=== PATIENT | female | born 1935 | race Caucasian/White ===

== ENCOUNTER → 2019-05-10 11:46 | Outpatient (BNVA) | payer MEDICARE, OTHER, SELFPAY | PROVIDERS: Family Provider Nurse Practitioner; PCP Nurse Practitioner; Visit Provider Nurse Practitioner | DX: I10 Essential (primary) hypertension (principal); E03.9 Hypothyroidism, unspecified; B02.22 Postherpetic trigeminal neuralgia; K21.0 Gastro-esophageal reflux disease with esophagitis | CPT/HCPCS: 80053; 80061; 84443 ==

== ENCOUNTER → 2019-07-19 12:10 | Outpatient (BNVA) | payer MEDICARE, OTHER, SELFPAY | PROVIDERS: Family Provider Nurse Practitioner; PCP Nurse Practitioner; Visit Provider Nurse Practitioner | DX: I10 Essential (primary) hypertension (principal); F41.9 Anxiety disorder, unspecified; E87.6 Hypokalemia | CPT/HCPCS: 80048 ==

== ENCOUNTER → 2019-08-25 11:00 | Outpatient (BNVA) | payer MEDICARE, OTHER, SELFPAY | PROVIDERS: Family Provider Nurse Practitioner; PCP Nurse Practitioner; Visit Provider Nurse Practitioner | DX: I10 Essential (primary) hypertension (principal); E03.9 Hypothyroidism, unspecified; E07.9 Disorder of thyroid, unspecified | CPT/HCPCS: 80053; 84443 ==

== ENCOUNTER → 2019-09-15 11:51 | Outpatient (BNVA) | payer MEDICARE, OTHER, SELFPAY | PROVIDERS: Family Provider Nurse Practitioner; PCP Nurse Practitioner; Visit Provider Nurse Practitioner | DX: I10 Essential (primary) hypertension (principal); F41.9 Anxiety disorder, unspecified; E03.9 Hypothyroidism, unspecified | CPT/HCPCS: 80053; 80061 ==

== ENCOUNTER → 2019-10-19 15:51 | Outpatient (BNVA) | payer MEDICARE, OTHER, SELFPAY | PROVIDERS: Family Provider Nurse Practitioner; PCP Nurse Practitioner; Visit Provider Nurse Practitioner | DX: R10.9 Unspecified abdominal pain (principal) | CPT/HCPCS: 74018; 80048 ==

== ENCOUNTER → 2019-10-23 10:37 | Outpatient (BNVA) | payer MEDICARE, OTHER, SELFPAY | PROVIDERS: Family Provider Nurse Practitioner; PCP Nurse Practitioner; Visit Provider Nurse Practitioner | DX: I10 Essential (primary) hypertension (principal); R10.9 Unspecified abdominal pain | CPT/HCPCS: 81000 ==

== ENCOUNTER → 2019-11-16 12:08 | Outpatient (BNVA) | payer MEDICARE, OTHER, SELFPAY | PROVIDERS: Family Provider Nurse Practitioner; PCP Nurse Practitioner; Visit Provider Nurse Practitioner | DX: I10 Essential (primary) hypertension (principal); R10.9 Unspecified abdominal pain; E87.6 Hypokalemia; K21.0 Gastro-esophageal reflux disease with esophagitis | CPT/HCPCS: 80048; 81000 ==

== ENCOUNTER → 2019-11-24 10:14 | Outpatient (BNVA) | payer MEDICARE, OTHER, SELFPAY | PROVIDERS: Family Provider Nurse Practitioner; PCP Nurse Practitioner; Visit Provider Nurse Practitioner | DX: E87.6 Hypokalemia (principal) | CPT/HCPCS: 80048 ==

== ENCOUNTER → 2020-02-21 11:29 | Outpatient (BNVA) | payer MEDICARE, OTHER, SELFPAY | PROVIDERS: Family Provider Nurse Practitioner; PCP Nurse Practitioner; Visit Provider Nurse Practitioner | DX: E03.9 Hypothyroidism, unspecified (principal); I10 Essential (primary) hypertension; E87.6 Hypokalemia; B02.22 Postherpetic trigeminal neuralgia; K21.00 Gastro-esophageal reflux disease with esophagitis, without bleeding | CPT/HCPCS: 80053; 84443 ==

== ENCOUNTER → 2020-04-18 11:37 | Outpatient (BNVA) | payer MEDICARE, OTHER, SELFPAY | PROVIDERS: Family Provider Nurse Practitioner; PCP Nurse Practitioner; Visit Provider Nurse Practitioner | DX: I10 Essential (primary) hypertension (principal); B02.22 Postherpetic trigeminal neuralgia; M19.049 Primary osteoarthritis, unspecified hand; E03.9 Hypothyroidism, unspecified | CPT/HCPCS: 80048 ==

== ENCOUNTER → 2020-06-06 11:47 | Outpatient (BNVA) | payer MEDICARE, OTHER, SELFPAY | PROVIDERS: Family Provider Nurse Practitioner; PCP Nurse Practitioner; Visit Provider Nurse Practitioner | DX: E03.9 Hypothyroidism, unspecified (principal); E55.9 Vitamin D deficiency, unspecified; I10 Essential (primary) hypertension | CPT/HCPCS: 80053; 82306; 84443; 85025 ==

== ENCOUNTER → 2020-08-08 11:42 | Outpatient (BNVA) | payer MEDICARE, OTHER, SELFPAY | PROVIDERS: Family Provider Nurse Practitioner; PCP Nurse Practitioner; Visit Provider Nurse Practitioner | DX: E03.9 Hypothyroidism, unspecified (principal); I10 Essential (primary) hypertension; E55.9 Vitamin D deficiency, unspecified; F41.9 Anxiety disorder, unspecified; B02.22 Postherpetic trigeminal neuralgia; R41.3 Other amnesia | CPT/HCPCS: 80053; 82306; 84443 ==

== ENCOUNTER → 2020-08-29 11:10 | Outpatient (BNVA) | payer MEDICARE, OTHER, SELFPAY | PROVIDERS: Family Provider Nurse Practitioner; PCP Nurse Practitioner; Visit Provider Nurse Practitioner | DX: I10 Essential (primary) hypertension (principal) | CPT/HCPCS: 80048; 85025 ==

== ENCOUNTER → 2020-10-03 11:36 | Outpatient (BNVA) | payer MEDICARE, OTHER, SELFPAY | PROVIDERS: Family Provider Nurse Practitioner; PCP Nurse Practitioner; Visit Provider Nurse Practitioner | DX: E55.9 Vitamin D deficiency, unspecified (principal); E03.9 Hypothyroidism, unspecified; F41.9 Anxiety disorder, unspecified | CPT/HCPCS: 82306; 84443 ==

== ENCOUNTER → 2020-10-09 15:57 | Outpatient (BNVA) | payer MEDICARE, OTHER, SELFPAY | PROVIDERS: Family Provider Nurse Practitioner; PCP Nurse Practitioner; Visit Provider Nurse Practitioner | DX: R07.9 Chest pain, unspecified (principal); I70.0 Atherosclerosis of aorta | CPT/HCPCS: 71046 ==

== ENCOUNTER → 2020-12-04 12:13 | Outpatient (BNVA) | payer MEDICARE, OTHER, SELFPAY | PROVIDERS: Family Provider Nurse Practitioner; PCP Nurse Practitioner; Visit Provider Nurse Practitioner | DX: I10 Essential (primary) hypertension (principal); R41.3 Other amnesia; E87.6 Hypokalemia; B02.22 Postherpetic trigeminal neuralgia; R39.11 Hesitancy of micturition; E03.9 Hypothyroidism, unspecified; E55.9 Vitamin D deficiency, unspecified | CPT/HCPCS: 80053; 82306; 84443 ==

== ENCOUNTER 2021-02-01 22:09 | Emergency (ER) | payer OTHER, MEDICARE, SELFPAY ==
[2021-02-01 22:19] VITALS: BP 101/50; PULSE 93; RESP 18; TEMP 36.8; O2SAT 95; BMI 21.6
[2021-02-01 22:28] LABS: Basophils # 0.1 10^3/uL (0.0-0.1); Basophils % 0.6 %; Eosinophils # 0.1 10^3/uL (0.0-0.8); Eosinophils % 0.7 %; Hematocrit 37.3 % (37.0-47.0); Lymphocytes # 1.7 10^3/uL (0.8-4.8); Mean Corpuscular HGB Conc 29.5 g/dL (30.0-36.0); Mean Corpuscular Hemoglobin 24.7 pg (28.0-34.0); Mean Corpuscular Volume 83.6 fl (81-99); Mean Platelet Volume 10.7 fL (7.4-10.4); Monocytes # 0.8 10^3/uL (0.2-0.9); Monocytes % 7.4 %; Neutrophils # 7.95 10^3/uL (1.8-7.7); Neutrophils % 74.9 %; Nucleated Red Blood Cells % 0 %; Platelet Count 293 10^3/cmm (130-400); Red Blood Count 4.46 10^6/uL (4.1-5.3); White Blood Count 10.6 10^3/uL (4.0-10.0)
--- NOTE | 2021-02-01 22:52 | ECG_ITS ---
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
--- NOTE | 2021-02-01 22:52 | ED_ITS ---
HPI - Weakness General: Chief complaint: Weakness Stated complaint: GENERAL WEAKNESS Time Seen by Provider: 02/01/21 22:45 History of Present Illness: HPI Narrative: 86-year-old female comes in today for complaints of weakness. Patient reports about 4:00 this afternoon she found herself lying in the floor of her living room. Patient reports that she had remembered just sitting watching TV and then she woke in the floor. Patient reports she was unable to get up after the floor and laid there several hours trying to get up until she was able to call for help. Patient was brought in reports that she is unable to move her lower extremities but is able to move her arms at this time. Patient appears well. Patient appears in no acute distress. Patient has a history of lower extremity lymphedema, vitamin D deficiency, arthritis, anxiety, GERD, hypothyroidism, hypertension, and herpes zoster to the right side of the face. 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 Occlusion and stenosis of left carotid artery Personal history of transient ischemic attack (TIA), and cerebral infarction without residual deficits Unspecified osteoarthritis, unspecified site Unspecified urinary incontinence Unspecified visual loss Urinary hesitancy Surgical History History of gynecologic surgery vulvaectomy 08/2010 due to cancer Family History Other Asthma CAD (coronary artery disease) Cancer Diabetes Social History Smoking and tobacco status: never smoked Second hand smoke exposure: No Smoking risk assessment/counseling performed?: No Alcohol intake: never Desire information about alcohol rehabilitation?: No Counseling given: No Desire information about substance/drug rehabilitation?: No Counseling given: No Adopted: No Caregiver/support person: No Lives independently: Yes Household members: none Housing: House Marital status: / service: No Current occupational status: retired History of recent travel: No Current gender identity: Female Physical Exam Const: COMMON NORMALS: no acute distress, patient oriented x3 and alert GENERAL APPEARANCE: cooperative ORIENTATION/CONSCIOUSNESS: Yes oriented to person, Yes oriented to place and Yes oriented to time HENMT: COMMON NORMALS: TM's normal bilaterally and Normal external nose present HEAD & SCALP: other (healing zoster lesions right facial cheek) NOSE: Normal external nose present TYMPANIC MEMBRANE: TM's normal bilaterally MOUTH: Normal oral and palatal mucosa present THROAT: posterior oropharynx normal Eye: GENERAL EYE: other Neck/C-Spine: COMMON NORMALS: full ROM Lymph: LYMPHATIC: no lymphadenopathy noted Chest: COMMONS NORMALS: normal inspection of the chest Resp: COMMON NORMALS: normal respiratory effort EFFORT & INSPECTION: Yes able to speak in complete sentences Cardio: COMMON NORMALS: regular rate and regular rhythm RATE: regular rate RHYTHM: regular rhythm GI: COMMON NORMALS: non-tender : COMMON NORMALS: Yes no CVA tenderness BLADDER/KIDNEY EXAM: Yes no CVA tenderness Back/Pelvis: COMMON NORMALS: no CVA tenderness and thoracic and lumbar spine normal to inspection Extremity: NARRATIVE EXTREMITY EXAM: unable to lift legs from bed or hold bilaterally Neuro: COMMON NORMALS: patient oriented x3 SENSORIUM/ORIENTATION: Yes alert, Yes oriented to person, Yes oriented to place and Yes oriented to time CRANIAL NERVES: Yes CN normal except as noted GAIT: Yes Unable to assess gait Psych: COMMON NORMALS: mental status grossly normal and cooperative Skin: COMMON NORMALS: no rashes or lesions noted GENERAL SKIN EXAM: no rashes or lesions noted Course ED course: 0030, reassessed patient she is able to move her lower extremities now I believe is probably due to patient prolonged lying in the floor which caused her legs to get weak. Patient reports feeling more improved. On exam we was noted the patient has a nitrite positive urinary tract infection with a mild increase in white blood cells at 10.6. We plan to treat that with Rocephin in the ER and then discharge her home with Macrobid. Patient reported understanding and wishes to go home. Vital Signs: Vital signs: Vital Signs Temperature 98.2 F 02/01/21 22:19 Pulse Rate 93 02/01/21 22:19 Respiratory Rate 18 02/01/21 22:19 Blood Pressure 112/52 02/01/21 23:32 Pulse Oximetry 95 02/01/21 22:19 MDM - Weakness MDM Narrative: Medical decision making narrative: Patient came in today with increasing weakness. Patient reports about 4:00 this afternoon she believes she went to get up out of the chair and had passed out onto the floor. Patient laid there for several hours before she was able to get herself up and then called for ambulance. On exam patient was alert oriented and appropriate in the ER. Patient moves her upper extremities but has significant weakness in the lower legs. Vital signs were normal. Differential diagnosis includes but not limited to sepsis, anxiety, stroke, fracture. Palpation of the extremities and spine indicated no pain or signs of fracture or dislocation. Urinalysis did show some nitrates and white blood cells in the urine suggesting a urinary tract infection. CT of the head indicated no acute abnormality. Monitoring patient she started becoming stronger and was able to stand and and transfer without any difficulty. Patient will be treated for urinary tract infection and recommend follow-up with primary care. Patient was agreeable to plan and wished to go home. Lab Data: Labs: Lab Results 02/01/21 02/01/21 02/01/21 21:10 21:10 23:11 WBC 10.6 10^3/uL H 10 ^3/uL (4.0-10.0) RBC 4.46 10^6/uL 10^6 /uL (4.1-5.3) Hgb 11.0 g/dL L g/dL (11.5-15.3) Hct 37.3 % % (37.0-47.0) MCV 83.6 fl fl (81-99) MCH 24.7 pg L pg (28.0-34.0) MCHC 29.5 g/dL L g/dL (30.0-36.0) RDW 17.0 % H % (12.1-15.1) Plt Count 293 10^3/cmm 10^3 /cmm (130-400) MPV 10.7 fL H fL (7.4-10.4) Neut % (Auto) 74.9 % % Lymph % (Auto) 16.0 % % [place] % (Auto) 7.4 % % Eos % (Auto) 0.7 % % Baso % (Auto) 0.6 % % Neut # (Auto) 7.95 10^3/uL H 10 ^3/uL (1.8-7.7) Lymph # (Auto) 1.7 10^3/uL 10^3/ uL (0.8-4.8) [place] # (Auto) 0.8 10^3/uL 10^3/ uL (0.2-0.9) Eos # (Auto) 0.1 10^3/uL 10^3/ uL (0.0-0.8) Baso # (Auto) 0.1 10^3/uL 10^3/ uL (0.0-0.1) Nucleated RBC % (a uto) 0 % % Nucleated RBCs # 0.0 /100WBC /100W BC Sodium 138 mmol/L mmol/L (136-145) Potassium 4.2 mmol/L mmol/L (3.5-5.1) Chloride 107 mmol/L mmol/L (98-107) Carbon Dioxide 18 mmol/L L mmol/ L (22-29) Anion Gap 17.2 (5-19) BUN 16 mg/dL mg/dL (8-23) Creatinine 0.8 mg/dL mg/dL (0.5-0.9) GFR Calculation Not Reportable Glucose 95 mg/dL mg/dL (65-115) Calculated Osmolal ity 287 mOsm/kg mOsm/ kg (285-295) Calcium 8.5 mg/dL mg/dL (8.5-10.5) Total Bilirubin 0.2 mg/dL mg/dL (0.15-1.2) AST 15 U/L U/L (0-32) ALT 10 U/L U/L (0-33) Alkaline Phosphata se 86 IU/L IU/L (35-105) Creatine Kinase Troponin T Baselin e Total Protein 5.9 g/dL L g/dL (6.6-8.7) Albumin 3.6 g/dL g/dL (3.5-5.2) Globulin 2.3 g/dL g/dL (1.3-4.6) TSH 1.80 uIU/mL uIU/m L (0.27-4.20) Urine Color Yellow (Yellow) Urine Appearance Clear (CLEAR) Urine pH 5 (5-7) Ur Specific Gravit y 1.010 (1.005-1.030) Urine Protein Neg (Negative) Urine Glucose (UA) Norm (Normal) Urine Ketones Negative (Negative) Urine Blood Neg (Negative) Urine Nitrate Positive H (Negative) Urine Bilirubin Neg (Negative) Urine Urobilinogen Norm mg/dL mg/dL (Negative) Ur Leukocyte Garima ase Negative (Negative) Urine RBC 0-4 /hpf H /hpf (0-2) Urine WBC 0-4 /hpf H /hpf (0-5) Ur Squamous Epith Cells 5-10 /hpf H /hpf (0-5) Amorphous Sediment 1+ /hpf /hpf Urine Bacteria 2+ /hpf H /hpf (NONE) 02/01/21 02/01/21 23:43 23:43 WBC RBC Hgb Hct MCV MCH MCHC RDW Plt Count MPV Neut % (Auto) Lymph % (Auto) [place] % (Auto) Eos % (Auto) Baso % (Auto) Neut # (Auto) Lymph # (Auto) [place] # (Auto) Eos # (Auto) Baso # (Auto) Nucleated RBC % (a uto) Nucleated RBCs # Sodium Potassium Chloride Carbon Dioxide Anion Gap BUN Creatinine GFR Calculation Glucose Calculated Osmolal ity Calcium Total Bilirubin AST ALT Alkaline Phosphata se Creatine Kinase 36 U/L U/L (26-192) Troponin T Baselin e 22 ng/L H ng/L (0-10) Total Protein Albumin Globulin TSH Urine Color Urine Appearance Urine pH Ur Specific Gravit y Urine Protein Urine Glucose (UA) Urine Ketones Urine Blood Urine Nitrate Urine Bilirubin Urine Urobilinogen Ur Leukocyte Garima ase Urine RBC Urine WBC Ur Squamous Epith Cells Amorphous Sediment Urine Bacteria Discharge Plan Discharge Patient Disposition: Home Clinical Impression: Acute UTI (urinary tract infection) Fall Qualifiers: Encounter type: initial encounter Qualified Code(s): W19.XXXA - Unspecified fall, initial encounter Condition: Stable Prescriptions: New Macrobid 100 mg capsule 100 mg PO BID 5 Days Qty: 10 RF: 0 No Action amphotericin B lipid complex 5 mg/mL suspension IV RF: 0 acetaminophen [Pain Relief (acetaminophen)] 650 mg tablet extended release 650 mg PO Q12H Qty: 60 RF: 0 lisinopril 2.5 mg tablet 2.5 mg PO DAILY Qty: 90 RF: 1 donepezil [Aricept] 5 mg tablet 5 mg PO DAILY Qty: 90 RF: 1 famotidine 40 mg tablet 40 mg PO BID Qty: 60 RF: 2 potassium chloride 8 mEq tablet extended release 8 meq PO DAILY Qty: 90 RF: 1 pregabalin [Lyrica] 50 mg capsule 50 mg PO BID Qty: 180 RF: 1 sucralfate [Carafate] 1 gram tablet 1 g PO .4 times day Qty: 360 RF: 1 tamsulosin 0.4 mg capsule 0.4 mg PO .in AM Qty: 90 RF: 1 cholecalciferol (vitamin D3) 125 mcg (5,000 unit) capsule 250 mcg PO DAILY RF: 0 thyroid (pork) [[place] Thyroid] 60 mg tablet 60 mg PO DAILY Qty: 90 RF: 1 Discharge Orders: Discharge ED (Routine); Ordered 02/02/21 Ordered By: Aftab Hoyt Referrals: Tika Faustin FNP [Primary Care Provider] - Discharge Diet: Usual diet Discharge Activity: Increase activity as tolerated Patient Instructions: Urinary Tract Infection in Women (ED), Opioid Safety Activity Restrictions/Additional Instructions: Drink plenty of water. Take medication as directed. Follow-up with primary care for further instruction. Return to the ER for new concerns. Coding Level of Care Code ED Customs Appraiser for Ava Fwd Exam Comprehensive
--- NOTE | 2021-02-01 22:52 | CTR_ITS ---
PROCEDURE INFORMATION: Exam: CT Head Without Contrast Exam date and time: 02/01/2021 10:52 PM Age: 86 years old Clinical indication: Weakness, extremity and other: Confusion; Bilateral TECHNIQUE: Imaging protocol: Computed tomography of the head without contrast. Radiation optimization: All CT scans at this facility use at least one of these dose optimization techniques: automated exposure control; mA and/or kV adjustment per patient size (includes targeted exams where dose is matched to clinical indication); or iterative reconstruction. COMPARISON: [place] thyroid [id number] 01/10/2018 3:19 PM RADIATION DOSE METRICS: Total DLP (mGy-cm): 782.37 FINDINGS: Brain: There is moderate cerebral atrophy. There is moderate diffuse heterogeneity of the white matter attenuation, consistent with chronic white matter ischemic changes. Negative for acute intracranial hemorrhage. No midline shift of the brain. No cerebral sulcal effacement. Brown matter and white matter interfaces are preserved. Low-attenuation changes in the right basal ganglia could represent small perivascular spaces or sequela of old lacunar infarcts. Cerebral ventricles: No ventriculomegaly. Paranasal sinuses: Air-fluid level in the left sphenoid sinus. Mastoid air cells: Visualized mastoid air cells are well aerated. Orbital cavity: Symmetric, unremarkable orbits. Vasculature: Intracranial atherosclerosis. Intracranial atherosclerosis. Bones/joints: Unremarkable. No acute fracture. Soft tissues: Unremarkable. CT/CT head wo con* [id number] IMPRESSION: Negative for acute intracranial abnormality. Radiation Dose CTDIVOL = (mGy): DLP = 782.37 (mGy-cm)
[2021-02-01 23:04] LABS: Alanine Aminotransferase 10 U/L (0-33); Albumin Level 3.6 g/dL (3.5-5.2); Alkaline Phosphatase 86 IU/L (35-105); Aspartate Amino Transferase 15 U/L (0-32); Blood Urea Nitrogen 16 mg/dL (8-23); Calcium 8.5 mg/dL (8.5-10.5); Carbon Dioxide 18 mmol/L (22-29); Chloride 107 mmol/L (98-107); Globulin 2.3 g/dL (1.3-4.6); Glucose 95 mg/dL (65-115); Osmolality Calculated 287 mOsm/kg (285-295); Sodium 138 mmol/L (136-145); Total Bilirubin 0.2 mg/dL (0.15-1.2); Total Protein 5.9 g/dL (6.6-8.7)
[2021-02-01 23:09] LABS: Anion Gap 17.2 (5-19); Potassium 4.2 mmol/L (3.5-5.1)
[2021-02-01 23:32] VITALS: BP 112/52
[2021-02-01 23:44] LABS: Add Urine Microscopic? YES; Bilirubin Urine Neg (Negative); Blood Urine Neg (Negative); Glucose Urine UA Norm (Normal); Ketones Urine Negative (Negative); Leukocyte Esterase Urine Negative (Negative); Nitrate Urine Positive (Negative); Protein Urine Neg (Negative); Urine Appearance Clear (CLEAR); Urine Color Yellow (Yellow); Urobilinogen Urine Norm (Negative); pH Urine 5 (5-7)
[2021-02-01 23:46] LABS: Add Urine Culture? Yes; Amorphous Sediment Urine 1+ /hpf; Bacteria Urine 2+ /hpf; RBC Urine 0-4 /hpf (0-2); WBC Urine 0-4 /hpf (0-5)
[2021-02-02 00:14] LABS: Troponin(5th) Baseline 22 ng/L (0-10)
[2021-02-02 00:15] LABS: Creatine Phosphokinase 36 U/L (26-192)
--- NOTE | 2021-02-02 00:52 | ECG_ITS ---
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1935 Requested By: Aftab Chamorro Order Number: [id number] Cleve MD: LORA SPRINGER Measurements Intervals [place] Rate: 85 P: 64 MA: 147 QRS: 6 QRSD: 100 T: 52 QT: 375 QTc: 446 Interpretive Statements SINUS RHYTHM INCOMPLETE RIGHT BUNDLE BRANCH BLOCK [90+ ms QRS DURATION, TERMINAL R IN V1/V2, 40+ ms S IN I/aVL/V4/V5/V6] MINIMAL ST DEPRESSION [0.025+ mV ST DEPRESSION] Compared to ECG 02/01/2021 22:23:47 ST (T wave) deviation now present Electronically Signed On 02-03-2021 20:25:22 CDT by LORA SPRINGER [id number]
[2021-02-02] MEDS: cefTRIAXone 1,000 MG in sodium chloride 0.9% (plus) 50 ML 100 MG IV (01:01)
[2021-02-02 01:56] VITALS: BP 100/45; PULSE 74; RESP 16; O2SAT 96
== END 2021-02-02 02:23 | disposition home or self-care (01) ==
PROVIDERS: Emergency Medicine; Emergency Provider Nurse Practitioner Family; PCP Nurse Practitioner
DX: N39.0 Urinary tract infection, site not specified (principal); I10 Essential (primary) hypertension; Z85.89 Personal history of malignant neoplasm of other organs and systems; Z86.73 Personal history of transient ischemic attack (TIA), and cerebral infarction without residual deficits
CPT/HCPCS: 70450; 80053; 81001; 82550; 84443; 84484; 85025; 87077; 87086; 87186; 93005; 96365; 99283; J0696

== ENCOUNTER → 2021-03-12 12:54 | Outpatient (BNVA) | payer MEDICARE, SELFPAY | PROVIDERS: PCP Nurse Practitioner; Referring Provider Nurse Practitioner; Visit Provider Specialist | DX: M25.511 Pain in right shoulder (principal) | CPT/HCPCS: 73030 ==

== ENCOUNTER 2021-06-20 23:02 | Emergency (ER) | payer MEDICARE, OTHER, SELFPAY ==
[2021-06-20 23:06] VITALS: BP 216/91; PULSE 75; RESP 16; TEMP 37; O2SAT 97; BMI 20.3
--- NOTE | 2021-06-20 23:09 | ECG_ITS ---
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 Measurements Intervals [place] Rate: 72 P: 57 HI: 153 QRS: 8 QRSD: 95 T: 26 QT: 387 QTc: 425 Interpretive Statements SINUS RHYTHM INCOMPLETE RIGHT BUNDLE BRANCH BLOCK [90+ ms QRS DURATION, TERMINAL R IN V1/V2, 40+ ms S IN I/aVL/V4/V5/V6] Compared to ECG 02/02/2021 01:04:46 ST (T wave) deviation no longer present Electronically Signed On 06-23-2021 12:16:12 FOOD PRODUCTION ASSOCIATE by Jayjay Abreu M.D. [id number] f
--- NOTE | 2021-06-20 23:09 | XRR_ITS ---
PROCEDURE INFORMATION: Exam: XR Chest Exam date and time: 06/20/2021 11:09 PM Age: 86 years old Clinical indication: Prior surgery; Surgery type: Gb; Patient HX: General weakness. Hypertensive on monitor. ; Additional info: Cp TECHNIQUE: Imaging protocol: XR of the chest. Views: 1 view. COMPARISON: CR XR chest 2V* [id number] 10/09/2020 3:58 PM FINDINGS: Lungs: Unremarkable. No consolidation. Pleural spaces: Unremarkable. No pleural effusion. No pneumothorax. Heart/Mediastinum: Unremarkable. No cardiomegaly. Bones/joints: Unremarkable. XR/XR chest 1V portable [id number] IMPRESSION: No acute findings.
--- NOTE | 2021-06-20 23:09 | CTR_ITS ---
PROCEDURE INFORMATION: Exam: CT Head Without Contrast Exam date and time: 06/20/2021 11:09 PM Age: 86 years old Clinical indication: Patient HX: Patient C/O worsening general weakness. Hypertensive on monitor. History of TIA. TECHNIQUE: Imaging protocol: Computed tomography of the head without contrast. Radiation optimization: All CT scans at this facility use at least one of these dose optimization techniques: automated exposure control; mA and/or kV adjustment per patient size (includes targeted exams where dose is matched to clinical indication); or iterative reconstruction. COMPARISON: CT head wo con* [id number] 02/01/2021 11:31 PM RADIATION DOSE METRICS: Total DLP (mGy-cm): 695.55 FINDINGS: Brain: There is mild diffuse cerebral atrophy. Patchy areas of hypoattenuation are seen in the deep white matter of the cerebral hemispheres bilaterally compatible with deep white matter microvascular disease. Cerebral ventricles: No ventriculomegaly. Paranasal sinuses: Fluid and mucosal thickening is seen within the right frontal and left ethmoidal sinuses. Mastoid air cells: Visualized mastoid air cells are well aerated. Bones/joints: Unremarkable. No acute fracture. Soft tissues: Unremarkable. CT/CT head wo con* [id number] IMPRESSION: There are no acute intracranial findings.
--- NOTE | 2021-06-20 23:10 | W.ED.WEAKNES ---
HPI - Weakness General: Chief complaint: Weakness Stated complaint: tia Time Seen by Provider: 06/20/21 23:09 Source: patient and EMS Mode of arrival: EMS Limitations: no limitations History of Present Illness: 86-year-old female states that she has been having increasing weakness for the last 2 to 3 months. States the weakness is gotten much worse and she is on a very hard time even walking today [place] has been having a hard time take care of her self. She denies any focal deficits she does have hypertension of is hypertensive here she states she is not been taking her meds denies any fever cough. Associated symptoms: Denies chest pain, chills, dysuria, easy bruising, fever(s), headache(s), nausea or vomiting Review of Systems Const: Denies: fever(s), chills, body aches or change in appetite Eyes: Denies: blurry vision or eye discomfort ENMT: Denies: throat pain or dental pain Card: Denies: chest pain Resp: Denies: dyspnea GI: Denies: abdominal pain, nausea, vomiting or diarrhea : Denies: dysuria Musc: Denies: neck pain or back pain Skin/Breast: Denies: rash Neuro: Reports: weakness in extremities; Denies: headache(s) Psych: Denies: depression Bienvenido/Lymph: Denies: easy bruising All/Imm: Denies: urticaria PFSH ED PFSH: Medical History Essential (primary) hypertension Gastro-esophageal reflux disease with esophagitis History of shingles History of skin cancer Hypothyroid Lymphedema of extremity 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 Occlusion and stenosis of left carotid artery Personal history of transient ischemic attack (TIA), and cerebral infarction without residual deficits Unspecified osteoarthritis, unspecified site Unspecified urinary incontinence Unspecified visual loss Urinary hesitancy Surgical History History of gynecologic surgery vulvaectomy 08/2010 due to cancer Family History Other Asthma CAD (coronary artery disease) Cancer Diabetes Social History Smoking and tobacco status: never smoked Second hand smoke exposure: No Smoking risk assessment/counseling performed?: No Alcohol intake: never Desire information about alcohol rehabilitation?: No Counseling given: No Desire information about substance/drug rehabilitation?: No Counseling given: No Adopted: No Caregiver/support person: No Lives independently: Yes Household members: none Housing: House Marital status: / service: No Current occupational status: retired History of recent travel: No Current gender identity: Female Physical Exam Const: COMMON NORMALS: patient oriented x3 GENERAL APPEARANCE: frail appearing HENMT: COMMON NORMALS: normocephalic and atraumatic HEAD & SCALP: normocephalic and atraumatic Eye: COMMON NORMALS: Equal, round and reactive pupils present and EOMs intact bilaterally PUPIL: Yes Equal, round and reactive pupils present Neck/C-Spine: COMMON NORMALS: full ROM and supple Chest: COMMONS NORMALS: normal inspection of the chest and normal palpation of entire chest wall Resp: COMMON NORMALS: normal respiratory effort, No retractions, No use of accessory muscles and clear to auscultation bilaterally AUSCULTATION: clear to auscultation bilaterally Cardio: COMMON NORMALS: regular rate, regular rhythm and No murmurs present (Cardio) RATE: regular rate RHYTHM: regular rhythm GI: COMMON NORMALS: Normal to inspection, nondistended, normoactive bowel sounds present, Soft to palpation, non-tender and no masses PALPATION: Yes Soft to palpation Extremity: COMMON NORMALS: normal to inspection and full ROM Neuro: COMMON NORMALS: patient oriented x3, moves all extremities and no focal motor deficits GAIT: Yes Staggering gait present Psych: COMMON NORMALS: mental status grossly normal, Normal thought process present and cooperative THOUGHT PROCESS: Normal thought process present Skin: COMMON NORMALS: no rashes or lesions noted and no wounds GENERAL SKIN EXAM: no rashes or lesions noted Course Vital Signs: Vital signs: Vital Signs Temperature 98.6 F 06/20/21 23:06 Pulse Rate 75 06/21/21 00:00 Respiratory Rate 17 06/21/21 00:00 Blood Pressure 184/80 06/21/21 00:00 Pulse Oximetry 97 06/21/21 00:00 MDM - Weakness Medical Decision Making Patient presents here with generalized weakness she does feel improved. She is able to ambulate the halls here. I did offer her admission for weakness but she states she feels improved would like to go home. She is to follow-up with PCP and return if worsening she understands agrees to plan. Lab Data : 06/20/21 23:25 06/20/21: Radiology Impressions Chest X-Ray 06/20/21 23: IMPRESSION: No acute findings. Head CT 06/20/21: IMPRESSION: There are no acute intracranial findings. Laboratory Results WBC 6.5 10^3/uL (4.0-10.0) 06/20/21: RBC 4.69 10^6/uL (4.1-5.3) 06/20/21: Hgb 11.3 g/dL (11.5-15.3) L 06/20/21: Hct 37.4 % (37.0-47.0) 06/20/21: MCV 79.7 fl (81-99) L 06/20/21: MCH 24.1 pg (28.0-34.0) L 06/20/21: MCHC 30.2 g/dL (30.0-36.0) 06/20/21: RDW 17.6 % (12.1-15.1) H 06/20/21: Plt Count 330 10^3/cmm (130-400) 06/20/21: MPV 9.9 fL (7.4-10.4) 06/20/21: Neut % (Auto) 67.5 % 06/20/21: Lymph % (Auto) 26.3 % 06/20/21: [place] % (Auto) 5.1 % 06/20/21: Eos % (Auto) 0.2 % 06/20/21: Baso % (Auto) 0.6 % 06/20/21: Neut # (Auto) 4.38 10^3/uL (1.8-7.7) 06/20/21: Lymph # (Auto) 1.7 10^3/uL (0.8-4.8) 06/20/21: [place] # (Auto) 0.3 10^3/uL (0.2-0.9) 06/20/21 23:25 Eos # (Auto) 0.0 10^3/uL (0.0-0.8) 06/20/21 23:25 Baso # (Auto) 0.0 10^3/uL (0.0-0.1) 06/20/21 23:25 Nucleated RBC % (auto) 0 % 06/20/21 23:25 Nucleated RBCs # 0.0 /100WBC 06/20/21 23:25 PT 13.60 SECONDS (12.1-14.9) 06/20/21 23:25 INR 1.01 (0.8-1.2) 06/20/21 23:25 Sodium 140 mmol/L (136-145) 06/20/21 23:25 Potassium 3.9 mmol/L (3.5-5.1) 06/20/21 23:25 Chloride 106 mmol/L (98-107) 06/20/21 23:25 Carbon Dioxide 22 mmol/L (22-29) 06/20/21 23:25 Anion Gap 15.9 (5-19) 06/20/21 23:25 BUN 15 mg/dL (8-23) 06/20/21 23:25 Creatinine 0.7 mg/dL (0.5-0.9) 06/20/21 23:25 GFR Calculation Not Reportable 06/20/21 23:25 Glucose 114 mg/dL (65-115) 06/20/21 23:25 Calculated Osmolality 292 mOsm/kg (285-295) 06/20/21 23:25 Calcium 9.2 mg/dL (8.5-10.5) 06/20/21 23:25 Total Bilirubin 0.2 mg/dL (0.15-1.2) 06/20/21 23:25 AST 15 U/L (0-32) 06/20/21 23:25 ALT 13 U/L (0-33) 06/20/21 23:25 Alkaline Phosphatase 78 IU/L (35-105) 06/20/21 23:25 Troponin T Baseline 13 ng/L (0-10) H 06/20/21 23:25 Troponin T 120 Minute 13.47 ng/L (0-10) H 06/21/21 00:40 Delta Troponin T 0.47 ABS# (0-10) 06/21/21 00:40 Total Protein 6.1 g/dL (6.6-8.7) L 06/20/21 23:25 Albumin 3.7 g/dL (3.5-5.2) 06/20/21 23:25 Globulin 2.4 g/dL (1.3-4.6) 06/20/21 23:25 TSH 3.20 uIU/mL (0.27-4.20) 06/20/21 23:25 Urine Color Yellow (Yellow) 06/21/21 00:10 Urine Appearance Clear (CLEAR) 06/21/21 00:10 Urine pH 5 (5-7) 06/21/21 00:10 Ur Specific [place] 1.015 (1.005-1.030) 06/21/21 00:10 Urine Protein Neg (Negative) 06/21/21 00:10 Urine Glucose (UA) Norm (Normal) 06/21/21 00:10 Urine Ketones Negative (Negative) 06/21/21 00:10 Urine Blood Neg (Negative) 06/21/21 00:10 Urine Nitrate Negative (Negative) 06/21/21 00:10 Urine Bilirubin Neg (Negative) 06/21/21 00:10 Urine Urobilinogen Norm mg/dL (Negative) 06/21/21 00:10 Ur Leukocyte Esterase 2+ (Negative) H 06/21/21 00:10 Urine RBC 0-4 /hpf (0-2) H 06/21/21 00:10 Urine WBC 15-25 /hpf (0-5) H 06/21/21 00:10 Ur Squamous Epith Cells 5-10 /hpf (0-5) H 06/21/21 00:10 Amorphous Sediment Not Reportable 06/21/21 00:10 Urine Bacteria 1+ /hpf (NONE) H 06/21/21 00:10 Urine Mucus 1+ /hpf 06/21/21 00:10 EKG Data EKG 1: I personally reviewed and interpreted this EKG as follows: EKG interpretation date: 06/20/21 EKG interpretation time: 23:16 Interpretation: NSR HR [address] OR T WAVE ABNORMALITIES QRS 95 QTC 411 EKG 2: I personally reviewed and interpreted this EKG as follows: EKG interpretation date: 06/21/21 EKG interpretation time: 00:37 Interpretation: nsr hr [address] or t wave abnormalities qrs 106 qtc 396 Discharge Plan Discharge Patient Disposition: Home Clinical Impression: Episode of generalized weakness Condition: Stable Prescriptions: No Action amphotericin B lipid complex 5 mg/mL suspension IV 0RF acetaminophen [Pain Relief (acetaminophen)] 650 mg tablet extended release 650 mg PO Q12H Qty: 60 0RF lisinopril 2.5 mg tablet 2.5 mg PO DAILY Qty: 90 1RF donepezil [Aricept] 5 mg tablet 5 mg PO DAILY Qty: 90 1RF Rx Instructions: for memory famotidine 40 mg tablet 40 mg PO BID Qty: 60 2RF pregabalin [Lyrica] 50 mg capsule 50 mg PO BID Qty: 180 1RF Rx Instructions: for shingles pain sucralfate [Carafate] 1 gram tablet 1 g PO .4 times day Qty: 360 1RF tamsulosin 0.4 mg capsule 0.4 mg PO .in AM Qty: 90 1RF cholecalciferol (vitamin D3) 125 mcg (5,000 unit) capsule 250 mcg PO DAILY 0RF thyroid (pork) [[place] Thyroid] 60 mg tablet 60 mg PO DAILY Qty: 90 1RF Rx Instructions: dose increase potassium chloride 8 mEq tablet extended release 8 meq PO DAILY Qty: 90 0RF Discharge Orders: Discharge ED (Routine); Ordered 06/21/21 Ordered By: Nadeem Kidd Referrals: Tika Faustin FNP [Primary Care Provider] - 1-3 days Discharge Diet: Advance as tolerated Discharge Activity: Resume usual activity Patient Instructions: Weakness (ED) Coding Level of Care Code ED Grill Prep Cook for Chg Fwd Exam Comprehensive
[2021-06-20 23:46] LABS: Basophils % 0.6 %; Eosinophils % 0.2 %; Hematocrit 37.4 % (37.0-47.0); Hemoglobin 11.3 g/dL (11.5-15.3); Lymphocytes # 1.7 10^3/uL (0.8-4.8); Lymphocytes % 26.3 %; Mean Corpuscular HGB Conc 30.2 g/dL (30.0-36.0); Mean Corpuscular Hemoglobin 24.1 pg (28.0-34.0); Mean Corpuscular Volume 79.7 fl (81-99); Mean Platelet Volume 9.9 fL (7.4-10.4); Monocytes # 0.3 10^3/uL (0.2-0.9); Monocytes % 5.1 %; Neutrophils # 4.38 10^3/uL (1.8-7.7); Neutrophils % 67.5 %; Nucleated Red Blood Cells % 0 %; Platelet Count 330 10^3/cmm (130-400); Red Blood Count 4.69 10^6/uL (4.1-5.3); Red Cell Distribution Width 17.6 % (12.1-15.1); White Blood Count 6.5 10^3/uL (4.0-10.0)
[2021-06-21] VITALS: BP 184/80; PULSE 75; RESP 17; O2SAT 97
[2021-06-21] LABS: INR 1.01 (0.8-1.2)
[2021-06-21 00:12] LABS: Troponin(5th) Baseline 13 ng/L (0-10)
[2021-06-21 00:22] LABS: Alanine Aminotransferase 13 U/L (0-33); Albumin Level 3.7 g/dL (3.5-5.2); Alkaline Phosphatase 78 IU/L (35-105); Anion Gap 15.9 (5-19); Aspartate Amino Transferase 15 U/L (0-32); Blood Urea Nitrogen 15 mg/dL (8-23); Calcium 9.2 mg/dL (8.5-10.5); Carbon Dioxide 22 mmol/L (22-29); Chloride 106 mmol/L (98-107); Globulin 2.4 g/dL (1.3-4.6); Glucose 114 mg/dL (65-115); Osmolality Calculated 292 mOsm/kg (285-295); Potassium 3.9 mmol/L (3.5-5.1); Sodium 140 mmol/L (136-145); Total Bilirubin 0.2 mg/dL (0.15-1.2); Total Protein 6.1 g/dL (6.6-8.7)
[2021-06-21 00:26] LABS: Add Urine Microscopic? YES; Bilirubin Urine Neg (Negative); Blood Urine Neg (Negative); Glucose Urine UA Norm (Normal); Ketones Urine Negative (Negative); Leukocyte Esterase Urine 2+ (Negative); Nitrate Urine Negative (Negative); Protein Urine Neg (Negative); Specific Gravity, Urine 1.015 (1.005-1.030); Urine Appearance Clear (CLEAR); Urine Color Yellow (Yellow); Urobilinogen Urine Norm (Negative); pH Urine 5 (5-7)
[2021-06-21 00:32] LABS: RBC Urine 0-4 /hpf (0-2); WBC Urine 15-25 /hpf (0-5)
[2021-06-21 00:33] LABS: Add Urine Culture? Yes; Bacteria Urine 1+ /hpf; Mucus Urine 1+ /hpf
[2021-06-21 01:02] LABS: Troponin 5 2HR 13.47 ng/L (0-10)
[2021-06-21 01:09] LABS: Troponin 5 2HR Delta 0.47 ABS# (0-10)
--- NOTE | 2021-06-21 01:09 | ECG_ITS ---
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 Measurements Intervals [place] Rate: 81 P: 56 PA: 127 QRS: 12 QRSD: 106 T: 46 QT: 359 QTc: 418 Interpretive Statements SINUS RHYTHM INCOMPLETE RIGHT BUNDLE BRANCH BLOCK [90+ ms QRS DURATION, TERMINAL R IN V1/V2, 40+ ms S IN I/aVL/V4/V5/V6] Compared to ECG 06/20/2021 23:16:29 No significant changes Electronically Signed On 06-23-2021 12:19:59 ASSISTANT [employer]OSS [employer] COACH by Jayjay Abreu M.D. [id number] f
[2021-06-21 02:53] VITALS: BP 173/79; PULSE 73; RESP 15; O2SAT 97
== END 2021-06-21 02:54 | disposition home or self-care (01) ==
PROVIDERS: Emergency Provider Emergency Medicine; PCP Nurse Practitioner
DX: R53.1 Weakness (principal); I10 Essential (primary) hypertension; E03.9 Hypothyroidism, unspecified; Z85.44 Personal history of malignant neoplasm of other female genital organs; Z85.828 Personal history of other malignant neoplasm of skin
CPT/HCPCS: 70450; 71045; 80053; 81001; 84443; 84484; 85025; 85610; 87086; 93005; 99283

== ENCOUNTER 2021-08-22 17:40 | Emergency (ER) | payer OTHER, MEDICARE, SELFPAY ==
[2021-08-22 17:46] VITALS: BP 124/70; PULSE 79; RESP 16; TEMP 37.1; O2SAT 99; BMI 19.8
[2021-08-22 17:54] VITALS: PULSE 80; RESP 16; O2SAT 99
--- NOTE | 2021-08-22 18:27 | CTR_ITS ---
PROCEDURE INFORMATION: Exam: CT Head Without Contrast Exam date and time: 08/22/2021 6:38 PM Age: 86 years old Clinical indication: Altered mental status/memory loss and speech disturbance; Confusion or disorientation; Patient HX: AMS w aphasia - resolving; Additional info: Weakness, near syncope TECHNIQUE: Imaging protocol: Computed tomography of the head without contrast. Radiation optimization: All CT scans at this facility use at least one of these dose optimization techniques: automated exposure control; mA and/or kV adjustment per patient size (includes targeted exams where dose is matched to clinical indication); or iterative reconstruction. COMPARISON: CT head wo con* [id number] 06/20/2021 11:34 PM RADIATION DOSE METRICS: Total DLP (mGy-cm): 722.68 FINDINGS: Brain: Mild atrophy and mild white matter chronic microvascular changes are noted. No hemorrhage or evidence of acute infarction. Cerebral ventricles: No ventriculomegaly. Paranasal sinuses: Left sphenoid sinusitis is appreciated. Mastoid air cells: Visualized mastoid air cells are well aerated. Bones/joints: Unremarkable. No acute fracture. Soft tissues: Unremarkable. CT/CT head wo con* [id number] IMPRESSION: No acute intracranial abnormality. Mild sinusitis.
--- NOTE | 2021-08-22 18:27 | XRR_ITS ---
PROCEDURE INFORMATION: Exam: XR Chest Exam date and time: 08/22/2021 6:43 PM Age: 86 years old Clinical indication: Other: Weakness TECHNIQUE: Imaging protocol: XR of the chest. Views: 1 view. COMPARISON: CR XR chest 1V portable [id number] 06/20/2021 11:14 PM FINDINGS: Lungs: The lungs are clear. Pleural spaces: Unremarkable. No pleural effusion. No pneumothorax. Heart/Mediastinum: Unremarkable. No cardiomegaly. Bones/joints: Unremarkable. XR/XR chest 1V portable [id number] IMPRESSION: No acute cardiopulmonary abnormality.
--- NOTE | 2021-08-22 18:28 | ECG_ITS ---
[facility] Test Date: 2021-08-22 Pat Name: Adriana Blakely Department: Room: Gender: Female Coo: : 1935 Requested By: Tiburcio Marie Order Number: [id number] Cleve MD: Rowena Kauffman M.D. Measurements Intervals [place] Rate: 74 P: 55 VT: 172 QRS: 36 QRSD: 126 T: 16 QT: 381 QTc: 424 Interpretive Statements SINUS RHYTHM POSSIBLE LEFT ATRIAL ENLARGEMENT [-0.1mV P-WAVE IN V1/V2] POSSIBLE RIGHT VENTRICULAR CONDUCTION DELAY [RSR (QR) IN V1/V2] Compared to ECG 06/21/2021 00:37:07 Incomplete right bundle-branch block no longer present Electronically Signed On 08-22-2021 23:29:46 CDT by Rowena Kauffman M.D. [id number]
[2021-08-22 18:56] LABS: Basophils # 0.1 10^3/uL (0.0-0.1); Basophils % 0.7 %; Eosinophils # 0.1 10^3/uL (0.0-0.8); Eosinophils % 0.7 %; Hematocrit 32.5 % (37.0-47.0); Hemoglobin 10.1 g/dL (11.5-15.3); Lymphocytes # 1.7 10^3/uL (0.8-4.8); Lymphocytes % 23.5 %; Mean Corpuscular HGB Conc 31.1 g/dL (30.0-36.0); Mean Corpuscular Hemoglobin 24.6 pg (28.0-34.0); Mean Corpuscular Volume 79.1 fl (81-99); Mean Platelet Volume 8.8 fL (7.4-10.4); Monocytes # 0.6 10^3/uL (0.2-0.9); Monocytes % 8.5 %; Neutrophils # 4.93 10^3/uL (1.8-7.7); Neutrophils % 66.3 %; Nucleated Red Blood Cells % 0 %; Platelet Count 306 10^3/cmm (130-400); Red Blood Count 4.11 10^6/uL (4.1-5.3); White Blood Count 7.4 10^3/uL (4.0-10.0)
[2021-08-22] MEDS: sodium chloride 0.9% 1,000 ML 999 ML IV (19:27)
[2021-08-22 19:32] LABS: Alanine Aminotransferase 9 U/L (0-33); Alkaline Phosphatase 81 IU/L (35-105); Anion Gap 20.6 (5-19); Aspartate Amino Transferase 12 U/L (0-32); Blood Urea Nitrogen 29 mg/dL (8-23); Calcium 7.7 mg/dL (8.5-10.5); Carbon Dioxide 14 mmol/L (22-29); Chloride 112 mmol/L (98-107); Creatine Phosphokinase 34 U/L (26-192); Globulin 2.9 g/dL (1.3-4.6); Glucose 91 mg/dL (65-115); Magnesium 2.1 mg/dL (1.7-2.3); Osmolality Calculated 301 mOsm/kg (285-295); Phosphorus 3.7 mg/dL (2.5-4.5); Potassium 3.6 mmol/L (3.5-5.1); Sodium 143 mmol/L (136-145); Total Bilirubin 0.2 mg/dL (0.15-1.2); Total Protein 5.9 g/dL (6.6-8.7)
[2021-08-22 19:33] LABS: Troponin(5th) Baseline 17 ng/L (0-10)
[2021-08-22 19:36] VITALS: BP 126/67; PULSE 77; RESP 20; O2SAT 99
[2021-08-22 19:39] LABS: Urine Appearance Turbid (CLEAR); Urine Color Yellow (Yellow); pH Urine 5 (5-7)
[2021-08-22 19:40] LABS: Add Urine Microscopic? YES; Bilirubin Urine Neg (Negative); Blood Urine Neg (Negative); Glucose Urine UA Norm (Normal); Ketones Urine Negative (Negative); Leukocyte Esterase Urine 2+ (Negative); Nitrate Urine Negative (Negative); Protein Urine Neg (Negative); Urobilinogen Urine Norm (Negative)
[2021-08-22 19:46] LABS: RBC Urine 0-4 /hpf (0-2); Squamous Epithelial Cell Urine 0-4 /hpf (0-5); WBC Urine 15-25 /hpf (0-5)
[2021-08-22 19:47] LABS: Bacteria Urine 2+ /hpf; Other Crystals Urine N /hpf; Renal Epithelial Cells Urine 0-4 /hpf; Uric Acid Crystals Urine N /hpf
[2021-08-22 19:48] LABS: Add Urine Culture? Yes; Amorphous Sediment Urine TRACE /hpf; Other Casts Urine N /lpf; Other Sediment, Urine N
[2021-08-22 20:02] LABS: INR 1.11 (0.8-1.2); Partial Thromboplastin Time 33.1 SECONDS (23.9-36.7)
[2021-08-22 20:04] LABS: Lactate (Lactic Acid level) 0.6 mmol/L (0.5-2.2)
--- NOTE | 2021-08-22 20:28 | ECG_ITS ---
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 Measurements Intervals [employer] Rate: 80 P: 56 [place]: 175 QRS: 44 QRSD: 132 T: 33 QT: 381 QTc: 441 Interpretive Statements SINUS RHYTHM POSSIBLE LEFT ATRIAL ENLARGEMENT [-0.1mV P-WAVE IN V1/V2] INTRAVENTRICULAR CONDUCTION DELAY [130+ ms QRS DURATION] Compared to ECG 08/22/2021 19:09:40 Intraventricular conduction delay now present Electronically Signed On 08-22-2021 23:35:03 CDT by Rowena Kauffman M.D. [id number]
--- NOTE | 2021-08-22 20:37 | PC.PHAR ---
PT UNABLE TO VERIFY MEDICATIONS- MEDICATIONS VERIFIED BY LAMINE PT FRIEND AND EXTERNAL MED LIST. PTS PHARMACY WAS CLOSED.
[2021-08-22 21:08] LABS: Troponin 5 2HR 13.48 ng/L (0-10)
[2021-08-22 21:09] LABS: Troponin 5 2HR Delta -3.52 ABS# (0-10)
[2021-08-22] MEDS: cefTRIAXone 1,000 MG in sodium chloride 0.9% (plus) 50 ML 100 MG IV (21:33)
--- NOTE | 2021-08-22 21:39 | W.ED.AMS ---
HPI - Altered Mental Status General: Chief Complaint: Altered Mental Status Stated Complaint: AMS Time Seen by Provider: 08/22/21 17:51 Source: patient History of Present Illness: 86-year-old female presenting after collapse at home. 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 She says that she got up to walk across the shop, and her legs buckled. She was caught by family. She did not hit her head. Evidently, she was confused there as well. She states that her legs still do not seem to want to work. 1 is not any more weak than the other. She denies any fever. She denies chest pain. She denies vomiting MD complaint: altered mental status and weakness Onset (ago): minute(s) Severity: moderate Consistency of symptoms: Unknown Context: other Associated symptoms: Deny auditory hallucinations or visual hallucinations Review of Systems Const: Denies: fever(s) Eyes: Denies: change in vision Card: Denies: chest pain Resp: Denies: dyspnea GI: Denies: abdominal pain, nausea or vomiting Musc: Denies: neck pain Neuro: Reports: numbness in extremities, weakness in extremities and confusion; Denies: headache(s), dizziness or seizure-like activity Psych: Denies: visual hallucinations or auditory hallucinations PFSH ED PFSH: Medical History Essential (primary) hypertension Gastro-esophageal reflux disease with esophagitis History of shingles History of skin cancer Hypothyroid Lymphedema of extremity 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 Occlusion and stenosis of left carotid artery Personal history of transient ischemic attack (TIA), and cerebral infarction without residual deficits Unspecified osteoarthritis, unspecified site Unspecified urinary incontinence Unspecified visual loss Urinary hesitancy Surgical History History of gynecologic surgery vulvaectomy 08/2010 due to cancer Family History Other Asthma CAD (coronary artery disease) Cancer Diabetes Social History Smoking and tobacco status: never smoked Second hand smoke exposure: No Smoking risk assessment/counseling performed?: No Alcohol intake: never Desire information about alcohol rehabilitation?: No Counseling given: No Desire information about substance/drug rehabilitation?: No Counseling given: No Adopted: No Caregiver/support person: No Lives independently: Yes Household members: none Housing: House Marital status: / service: No Current occupational status: retired History of recent travel: No Current gender identity: Female Physical Exam Const: COMMON NORMALS: no acute distress GENERAL APPEARANCE: cooperative ORIENTATION/CONSCIOUSNESS: Yes awake, Yes oriented to person and Yes oriented to place; not oriented to time HENMT: COMMON NORMALS: normocephalic and Normal external nose present HEAD & SCALP: normocephalic FACE & SINUS: normal facial exam NOSE: Normal external nose present Eye: COMMON NORMALS: negative for Equal, round and reactive pupils present and negative for EOMs intact bilaterally PUPIL: No Equal, round and reactive pupils present Chest: COMMONS NORMALS: normal inspection of the chest Resp: COMMON NORMALS: normal respiratory effort, No use of accessory muscles and clear to auscultation bilaterally AUSCULTATION: clear to auscultation bilaterally Cardio: COMMON NORMALS: negative for regular rate and negative for regular rhythm RATE: abnormal rate RHYTHM: abnormal rhythm GI: COMMON NORMALS: Normal to inspection, nondistended, normoactive bowel sounds present, Soft to palpation and non-tender PALPATION: Yes Soft to palpation Extremity: COMMON NORMALS: normal to inspection Neuro: FAITH COMA SCALE: document GCS findings Faith coma scale eye opening: Spontaneous Faith coma scale verbal response: Orientated [place] coma scale motor response: [place] commands Faith coma scale total score: 15 SENSORIUM/ORIENTATION: Yes oriented to person, Yes oriented to place and No oriented to time Psych: COMMON NORMALS: cooperative and speech normal SPEECH: Yes normal speech Course Vital Signs: Vital signs: Vital Signs Temperature 98.7 F 08/22/21 17:46 Pulse Rate 76 08/22/21 22:31 Respiratory Rate 16 08/22/21 22:31 Blood Pressure 119/61 08/22/21 22:31 Pulse Oximetry 93 08/22/21 22:31 MDM - Altered Mental Status Medical Decision Making 86-year-old female with clearing mental status at this point. She is generally weak in her legs, although she has been able to get up with some mild assistance, and walk to the bathroom. She uses a walker at home she says. Urinalysis shows urinary tract infection. She does not have a white count or fever. Her bicarbonate level is 14 indicating dehydration. She has been given IV fluid here. Again, her mental status seems improved. Her head CT is negative. Her troponin did not elevate at 2 hours, and the patient did not have any chest pain. EKG shows no evidence of arrhythmia. She will be allowed discharge with treatment of her urinary tract infection Lab Data : 08/22/21 18:50 08/22/21 18:50 Radiology Impressions Chest X-Ray 08/22/21 18:27 IMPRESSION: No acute cardiopulmonary abnormality. Head CT 08/22/21 18:27 IMPRESSION: No acute intracranial abnormality. Mild sinusitis. Laboratory Results WBC 7.4 10^3/uL (4.0-10.0) 08/22/21 18:50 RBC 4.11 10^6/uL (4.1-5.3) 08/22/21 18:50 Hgb 10.1 g/dL (11.5-15.3) L 08/22/21 18:50 Hct 32.5 % (37.0-47.0) L 08/22/21 18:50 MCV 79.1 fl (81-99) L 08/22/21 18:50 MCH 24.6 pg (28.0-34.0) L 08/22/21 18:50 MCHC 31.1 g/dL (30.0-36.0) 08/22/21 18:50 RDW 19.0 % (12.1-15.1) H 08/22/21 18:50 Plt Count 306 10^3/cmm (130-400) 08/22/21 18:50 MPV 8.8 fL (7.4-10.4) 08/22/21 18:50 Neut % (Auto) 66.3 % 08/22/21 18:50 Lymph % (Auto) 23.5 % 08/22/21 18:50 [place] % (Auto) 8.5 % 08/22/21 18:50 Eos % (Auto) 0.7 % 08/22/21 18:50 Baso % (Auto) 0.7 % 08/22/21 18:50 Neut # (Auto) 4.93 10^3/uL (1.8-7.7) 08/22/21 18:50 Lymph # (Auto) 1.7 10^3/uL (0.8-4.8) 08/22/21 18:50 [place] # (Auto) 0.6 10^3/uL (0.2-0.9) 08/22/21 18:50 Eos # (Auto) 0.1 10^3/uL (0.0-0.8) 08/22/21 18:50 Baso # (Auto) 0.1 10^3/uL (0.0-0.1) 08/22/21 18:50 Nucleated RBC % (auto) 0 % 08/22/21 18:50 Nucleated RBCs # 0.0 /100WBC 08/22/21 18:50 PT 14.70 SECONDS (12.1-14.9) 08/22/21 19:38 INR 1.11 (0.8-1.2) 08/22/21 19:38 APTT 33.1 SECONDS (23.9-36.7) 08/22/21 19:38 Sodium 143 mmol/L (136-145) 08/22/21 18:50 Potassium 3.6 mmol/L (3.5-5.1) 08/22/21 18:50 Chloride 112 mmol/L (98-107) H 08/22/21 18:50 Carbon Dioxide 14 mmol/L (22-29) L 08/22/21 18:50 Anion Gap 20.6 (5-19) H 08/22/21 18:50 BUN 29 mg/dL (8-23) H 08/22/21 18:50 Creatinine 1.1 mg/dL (0.5-0.9) H 08/22/21 18:50 GFR Calculation Not Reportable 08/22/21 18:50 Glucose 91 mg/dL (65-115) 08/22/21 18:50 Calculated Osmolality 301 mOsm/kg (285-295) H 08/22/21 18:50 Lactate 0.6 mmol/L (0.5-2.2) 08/22/21 19:38 Calcium 7.7 mg/dL (8.5-10.5) L 08/22/21 18:50 Phosphorus 3.7 mg/dL (2.5-4.5) 08/22/21 18:50 Magnesium 2.1 mg/dL (1.7-2.3) 08/22/21 18:50 Total Bilirubin 0.2 mg/dL (0.15-1.2) 08/22/21 18:50 AST 12 U/L (0-32) 08/22/21 18:50 ALT 9 U/L (0-33) 08/22/21 18:50 Alkaline Phosphatase 81 IU/L (35-105) 08/22/21 18:50 Creatine Kinase 34 U/L (26-192) 08/22/21 18:50 Troponin T Baseline 17 ng/L (0-10) H 08/22/21 18:50 Troponin T 120 Minute 13.48 ng/L (0-10) H 08/22/21 20:40 Delta Troponin T -3.52 ABS# (0-10) L 08/22/21 20:40 Total Protein 5.9 g/dL (6.6-8.7) L 08/22/21 18:50 Albumin 3.0 g/dL (3.5-5.2) L 08/22/21 18:50 Globulin 2.9 g/dL (1.3-4.6) 08/22/21 18:50 Urine Color Yellow (Yellow) 08/22/21 19:25 Urine Appearance Turbid (CLEAR) 08/22/21 19:25 Urine pH 5 (5-7) 08/22/21 19:25 Ur Specific [place] 1.020 (1.005-1.030) 08/22/21 19:25 Urine Protein Neg (Negative) 08/22/21 19:25 Urine Glucose (UA) Norm (Normal) 08/22/21 19:25 Urine Ketones Negative (Negative) 08/22/21 19:25 Urine Blood Neg (Negative) 08/22/21 19:25 Urine Nitrate Negative (Negative) 08/22/21 19:25 Urine Bilirubin Neg (Negative) 08/22/21 19:25 Urine Urobilinogen Norm mg/dL (Negative) 08/22/21 19:25 Ur Leukocyte Esterase 2+ (Negative) H 08/22/21 19:25 Urine RBC 0-4 /hpf (0-2) H 08/22/21 19:25 Urine WBC 15-25 /hpf (0-5) H 08/22/21 19:25 Ur Squamous Epith Cells 0-4 /hpf (0-5) H 08/22/21 19:25 Ur Transition Epith Cell None /hpf 08/22/21 19:25 Ur Renal Epithelial Cell 0-4 /hpf 08/22/21 19:25 Calcium Oxalate Crystal None /hpf 08/22/21 19:25 Uric Acid Crystals N /hpf 08/22/21 19:25 Triple Phos Crystals None /hpf 08/22/21 19:25 Other Crystals N /hpf 08/22/21 19:25 Amorphous Sediment Trace /hpf 08/22/21 19:25 Urine Bacteria 2+ /hpf (NONE) H 08/22/21 19:25 Hyaline Casts None /lpf 08/22/21 19:25 Fine Granular Casts None /lpf 08/22/21 19:25 Coarse Granular Casts None /lpf 08/22/21 19:25 RBC Casts None /lpf 08/22/21 19:25 Other Casts N /lpf 08/22/21 19:25 Urine Mucus None /hpf 08/22/21 19:25 Urine Trichomonas None /hpf 08/22/21 19:25 Urine Yeast None /hpf 08/22/21 19:25 Urine Sperm None /hpf 08/22/21 19:25 Ur Oval Fat Bodies None /hpf 08/22/21 19:25 Discharge Plan Discharge Patient Disposition: Home Clinical Impression: Altered mental status, Near syncope, Urinary tract infection Condition: Stable Prescriptions: New cefdinir 300 mg capsule 300 mg PO BID Qty: 14 0RF No Action amphotericin B lipid complex 5 mg/mL suspension 5 mg IV DIRECTED 0RF acetaminophen [Pain Relief (acetaminophen)] 650 mg tablet extended release 650 mg PO Q12H Qty: 60 0RF lisinopril 2.5 mg tablet 2.5 mg PO DAILY Qty: 90 1RF donepezil [Aricept] 5 mg tablet 5 mg PO DAILY Qty: 90 1RF Rx Instructions: for memory famotidine 40 mg tablet 40 mg PO BID Qty: 60 2RF pregabalin [Lyrica] 50 mg capsule 50 mg PO BID Qty: 180 1RF Rx Instructions: for shingles pain sucralfate [Carafate] 1 gram tablet 1 g PO .4 times day Qty: 360 1RF tamsulosin 0.4 mg capsule 0.4 mg PO .in AM Qty: 90 1RF cholecalciferol (vitamin D3) 125 mcg (5,000 unit) capsule 250 mcg PO DAILY 0RF thyroid (pork) [[place] Thyroid] 60 mg tablet 60 mg PO DAILY Qty: 90 1RF Rx Instructions: dose increase potassium chloride 8 mEq tablet extended release 8 meq PO DAILY Qty: 90 0RF mirtazapine 15 mg tablet 15 mg PO DAILY 0RF Discharge Orders: Discharge ED (Routine); Ordered 08/22/21 Ordered By: Tiburcio Beckford Referrals: Tika Faustin FNP [Primary Care Provider] - 1-3 days Patient Instructions: Near Syncope (ED), Altered Mental Status (ED), Urinary Tract Infection in Older Adults (ED) Activity Restrictions/Additional Instructions: Return for worsening mental status, worsening weakness, repeated episodes of syncope or collapse, any other concerning symptoms Coding Level of Care Code ED District Sales Coordinator for Ava Fwmichael Exam Comprehensive
[2021-08-22 22:14] VITALS: BP 120/63; O2SAT 92
[2021-08-22 22:31] VITALS: BP 119/61; PULSE 76; RESP 16; O2SAT 93
== END 2021-08-22 22:33 | disposition home or self-care (01) ==
PROVIDERS: Emergency Provider Emergency Medicine; PCP Nurse Practitioner
DX: N39.0 Urinary tract infection, site not specified (principal)
CPT/HCPCS: 70450; 71045; 80053; 81001; 82550; 83605; 83735; 84100; 84484; 85025; 85610; 85730; 87086; 93005; 96365; 99284; J0696; J7030

== ENCOUNTER 2021-08-30 10:58 | Emergency (ER) | payer OTHER, MEDICARE, SELFPAY ==
[2021-08-30 11:10] VITALS: BP 115/61; PULSE 75; RESP 18; TEMP 36.7; O2SAT 95; BMI 20.2
--- NOTE | 2021-08-30 11:15 | W.ED.FEMALGU ---
HPI - Female Genitourinary General: Chief complaint: Urogenital-Female Stated complaint: Says her uti is not getting better Time Seen by Provider: 08/30/21 11:15 History of Present Illness: Ms. Blakely is a 86-year-old lady who presents to the emergency department due to altered mental status. She is accompanied by her son who provides some supplemental history. Apparently she was recently treated with antibiotics and just completed her course of antibiotics however was more altered starting yesterday. Onset of symptoms was gradual. Symptoms are generalized and progressively worsening. Intensity symptoms is moderate. She has had similar episodes in the past associated with infection. Patient herself is pleasant and only reports left-sided pain which is cramping in nature and occasionally sharp and stabbing. Does have a history of intermittent confusion associated with symptoms. No focal neurologic deficits appreciated. It is unclear if this predates her current symptoms or urinary symptoms. No other specific changes in health, exacerbating, or alleviating factors identified. 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 Occlusion and stenosis of left carotid artery Personal history of transient ischemic attack (TIA), and cerebral infarction without residual deficits Unspecified osteoarthritis, unspecified site Unspecified urinary incontinence Unspecified visual loss Urinary hesitancy Surgical History History of gynecologic surgery vulvaectomy 08/2010 due to cancer Family History Other Asthma CAD (coronary artery disease) Cancer Diabetes Social History Smoking and tobacco status: never smoked Second hand smoke exposure: No Smoking risk assessment/counseling performed?: No Alcohol intake: never Desire information about alcohol rehabilitation?: No Counseling given: No Desire information about substance/drug rehabilitation?: No Counseling given: No Adopted: No Caregiver/support person: No Lives independently: Yes Household members: none Housing: House Marital status: / service: No Current occupational status: retired History of recent travel: No Current gender identity: Female Physical Exam Const: COMMON NORMALS: alert GENERAL APPEARANCE: cooperative and well developed HENMT: COMMON NORMALS: normocephalic and atraumatic HEAD & SCALP: normocephalic and atraumatic Eye: COMMON NORMALS: conjunctivae normal CONJUNCTIVA: Yes conjunctivae normal SCLERA: sclerae normal Neck/C-Spine: COMMON NORMALS: supple GENERAL: Yes trachea midline Resp: COMMON NORMALS: normal respiratory effort EFFORT & INSPECTION: Yes able to speak in complete sentences Cardio: COMMON NORMALS: regular rate and regular rhythm RATE: regular rate RHYTHM: regular rhythm GI: COMMON NORMALS: Soft to palpation PALPATION: Yes Soft to palpation, Yes Tenderness to palpation present (GI), No Guarding due to palpation present (GI) and No Rigid due to palpation PERCUSSION: normal to percussion Extremity: GENERAL: Yes normal exam except as noted and No edema Neuro: COMMON NORMALS: CN's II-XII intact bilaterally, moves all extremities, no focal motor deficits and no sensory deficits noted SENSORIUM/ORIENTATION: Yes alert and No Orientation impaired Psych: COMMON NORMALS: mental status grossly normal and Normal thought process present THOUGHT PROCESS: Normal thought process present Course ED course: - Patient was seen and evaluated by me at bedside - Patient placed on cardiac monitors, IV access obtained - Initial evaluation notable for exam as above - Labs notable for no leukocytosis, microcytic anemia. Metabolic panel without acute derangement to explain symptoms. Urinalysis with improved appearance - Imaging notable for no evidence of intracranial hemorrhage or mass. Nonspecific colitis noted on abdominal CT. - Upon serial reexamination after treatment the patient was improved. Given evidence of colitis treated with antibiotics. - Based on patient history, evaluation, and testing as interpreted the most likely cause of the patient's condition is colitis - The results of ED evaluation were discussed with the patient including prescriptions and/or symptomatic cares (if applicable) including appropriate and responsible use, followup plan, and return precautions. The patient verbalized understanding and felt safe for discharge. - Patient discharged in satisfactory condition. Note: Click bubbles or prepopulated urbina in note writing are used for assistance with data collection and billing and are inherently more limited than narrative and other text portions of this note. Please use narrative for additional clinical history and defer to narrative/free test for any case of contradictory information. If information appears in only free text or click bubble it should be considered present or absent as reported. Please contact note scientific writer for clarifications of clinical information or contradictory information. MDM is a brief summary, contradictory or erroneous seeming information should be clarified and full note should be reviewed. Vital Signs: Vital signs: Vital Signs Temperature 98.1 F 08/30/21 11:10 Pulse Rate 73 08/30/21 16:13 Respiratory Rate 16 08/30/21 16:13 Blood Pressure 168/71 08/30/21 16:13 Pulse Oximetry 98 08/30/21 16:13 MDM - Female Medical Decision Making 86-year-old lady presenting with mental status change as well as abdominal pain after completion of course of UTI antibiotics. Nonfocal neurologic exam on initial exam. Patient found to have colitis on CT scan. We will plan to treat for colitis with antibiotics in the outpatient setting, strict return precautions given. Patient comfortable with plan. Medical Records I reviewed the patient's medical records. Lab Data I reviewed the patient's lab results. : 08/30/21 11:30 08/30/21 11:30 Radiology Impressions Abdomen/Pelvis CT 08/30/21 12:07 IMPRESSION: 1. There are air-fluid levels in the distal colon suggesting mild nonspecific colitis versus other diarrheal illness. There is a moderate to large stool burden with gaseous distension of the large bowel. 2. Left pleural effusion with adjacent compressive atelectasis and or pneumonia. Head CT 08/30/21 12:07 IMPRESSION: No evidence of acute intracranial abnormality. No acute hemorrhage. No evidence of acute infarct or mass. Laboratory Results WBC 5.2 10^3/uL (4.0-10.0) 08/30/21 11:30 RBC 4.30 10^6/uL (4.1-5.3) 08/30/21 11:30 Hgb 10.3 g/dL (11.5-15.3) L 08/30/21 11:30 Hct 34.7 % (37.0-47.0) L 08/30/21 11:30 MCV 80.7 fl (81-99) L 08/30/21 11:30 MCH 24.0 pg (28.0-34.0) L 08/30/21 11: MCHC 29.7 g/dL (30.0-36.0) L 08/30/21 11:30 RDW 18.6 % (12.1-15.1) H 08/30/21 11:30 Plt Count 391 10^3/cmm (130-400) 08/30/21 11:30 MPV 9.7 fL (7.4-10.4) 08/30/21 11:30 Neut % (Auto) 59.9 % 08/30/21 11:30 Lymph % (Auto) 30.2 % 08/30/21 11:30 [place] % (Auto) 7.5 % 08/30/21 11:30 Eos % (Auto) 1.4 % 08/30/21 11:30 Baso % (Auto) 0.4 % 08/30/21 11: Neut # (Auto) 3.10 10^3/uL (1.8-7.7) 08/30/21 11:30 Lymph # (Auto) 1.6 10^3/uL (0.8-4.8) 08/30/21 11:30 [place] # (Auto) 0.4 10^3/uL (0.2-0.9) 08/30/21 11:30 Eos # (Auto) 0.1 10^3/uL (0.0-0.8) 08/30/21 11:30 Baso # (Auto) 0.0 10^3/uL (0.0-0.1) 08/30/21 11: Nucleated RBC % (auto) 0 % 08/30/21 11: Nucleated RBCs # 0.0 /100WBC 08/30/21 11:30 Sodium 136 mmol/L (136-145) 08/30/21 11:30 Potassium 3.4 mmol/L (3.5-5.1) L 08/30/21 11:30 Chloride 108 mmol/L (98-107) H 08/30/21 11:30 Carbon Dioxide 16 mmol/L (22-29) L 08/30/21 11:30 Anion Gap 15.4 (5-19) 08/30/21 11:30 BUN 20 mg/dL (8-23) 08/30/21 11:30 Creatinine 1.1 mg/dL (0.5-0.9) H 08/30/21 11:30 GFR Calculation Not Reportable 08/30/21 11:30 Glucose 99 mg/dL (65-115) 08/30/21 11:30 Calculated Osmolality 285 mOsm/kg (285-295) 08/30/21 11:30 Lactic Acid 0.4 mmol/L (0.5-2.2) L 08/30/21 14:50 Calcium 8.0 mg/dL (8.5-10.5) L 08/30/21 11:30 Total Bilirubin 0.2 mg/dL (0.15-1.2) 08/30/21 11:30 AST 14 U/L (0-32) 08/30/21 11:30 ALT 8 U/L (0-33) 08/30/21 11:30 Alkaline Phosphatase 96 IU/L (35-105) 08/30/21 11:30 Total Protein 6.3 g/dL (6.6-8.7) L 08/30/21 11:30 Albumin 3.5 g/dL (3.5-5.2) 08/30/21 11:30 Globulin 2.8 g/dL (1.3-4.6) 08/30/21 11:30 Urine Color Yellow (Yellow) 08/30/21 11:30 Urine Appearance Clear (CLEAR) 08/30/21 11:30 Urine pH 5 (5-7) 08/30/21 11:30 Ur Specific [place] 1.010 (1.005-1.030) 08/30/21 11:30 Urine Protein Neg (Negative) 08/30/21 11:30 Urine Glucose (UA) Norm (Normal) 08/30/21 11:30 Urine Ketones Negative (Negative) 08/30/21 11:30 Urine Blood Neg (Negative) 08/30/21 11:30 Urine Nitrate Negative (Negative) 08/30/21 11:30 Urine Bilirubin Neg (Negative) 08/30/21 11:30 Urine Urobilinogen Norm mg/dL (Negative) 08/30/21 11:30 Ur Leukocyte Esterase Trace (Negative) H 08/30/21 11:30 Urine RBC None /hpf (0-2) 08/30/21 11:30 Urine WBC 5-10 /hpf (0-5) H 08/30/21 11:30 Ur Squamous Epith Cells 0-4 /hpf (0-5) H 08/30/21 11:30 Ur Transition Epith Cell Rare /hpf 08/30/21 11:30 Amorphous Sediment Not Reportable 08/30/21 11:30 Urine Bacteria 1+ /hpf (NONE) H 08/30/21 11:30 Urine Mucus Trace /hpf 08/30/21 11:30 Discharge Plan Discharge Patient Disposition: Home Clinical Impression: Colitis, Pleural effusion, Confusion Condition: Stable Prescriptions: New Cipro 500 mg tablet 500 mg PO BID Qty: 10 0RF No Action amphotericin B lipid complex 5 mg/mL suspension 5 mg IV DIRECTED 0RF acetaminophen [Pain Relief (acetaminophen)] 650 mg tablet extended release 650 mg PO Q12H Qty: 60 0RF lisinopril 2.5 mg tablet 2.5 mg PO DAILY Qty: 90 1RF donepezil [Aricept] 5 mg tablet 5 mg PO DAILY Qty: 90 1RF Rx Instructions: for memory famotidine 40 mg tablet 40 mg PO BID Qty: 60 2RF pregabalin [Lyrica] 50 mg capsule 50 mg PO BID Qty: 180 1RF Rx Instructions: for shingles pain sucralfate [Carafate] 1 gram tablet 1 g PO .4 times day Qty: 360 1RF tamsulosin 0.4 mg capsule 0.4 mg PO .in AM Qty: 90 1RF cholecalciferol (vitamin D3) 125 mcg (5,000 unit) capsule 250 mcg PO DAILY 0RF thyroid (pork) [[place] Thyroid] 60 mg tablet 60 mg PO DAILY Qty: 90 1RF Rx Instructions: dose increase potassium chloride 8 mEq tablet extended release 8 meq PO DAILY Qty: 90 0RF mirtazapine 15 mg tablet 15 mg PO DAILY 0RF cefdinir 300 mg capsule 300 mg PO BID Qty: 14 0RF Discharge Orders: Discharge ED (Routine); Ordered 08/30/21 Ordered By: Richar Mitchell Referrals: Tika Faustin FNP [Primary Care Provider] - Discharge Diet: Advance as tolerated and Clear Liquid Discharge Activity: Increase activity as tolerated Patient Instructions: Altered Mental Status (ED), Colitis (ED), Pleural Effusion Activity Restrictions/Additional Instructions: Thank you for visiting the emergency department. You were seen and evaluated for confusion. The exact cause of your symptoms is unclear however is likely related to infection. This will be treated with antibiotics. I strongly recommend admission which you are declining at this time. You may return to the emergency department for anything that you are concerned about at any time. Please follow-up with your primary care provider. 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
[2021-08-30 11:54] LABS: Protein Urine Neg (Negative); Urine Appearance Clear (CLEAR); Urine Color Yellow (Yellow); pH Urine 5 (5-7)
[2021-08-30 11:55] LABS: Add Urine Culture? No; Add Urine Microscopic? YES; Bacteria Urine 1+ /hpf; Bilirubin Urine Neg (Negative); Blood Urine Neg (Negative); Glucose Urine UA Norm (Normal); Ketones Urine Negative (Negative); Leukocyte Esterase Urine Trace (Negative); Mucus Urine TRACE /hpf; Nitrate Urine Negative (Negative); Squamous Epithelial Cell Urine 0-4 /hpf (0-5); Transitional Epi Cells Urine RARE /hpf; Urobilinogen Urine Norm (Negative)
[2021-08-30 11:57] LABS: Basophils % 0.4 %; Eosinophils # 0.1 10^3/uL (0.0-0.8); Eosinophils % 1.4 %; Hematocrit 34.7 % (37.0-47.0); Hemoglobin 10.3 g/dL (11.5-15.3); Lymphocytes # 1.6 10^3/uL (0.8-4.8); Lymphocytes % 30.2 %; Mean Corpuscular HGB Conc 29.7 g/dL (30.0-36.0); Mean Corpuscular Volume 80.7 fl (81-99); Mean Platelet Volume 9.7 fL (7.4-10.4); Monocytes # 0.4 10^3/uL (0.2-0.9); Monocytes % 7.5 %; Neutrophils % 59.9 %; Nucleated Red Blood Cells % 0 %; Platelet Count 391 10^3/cmm (130-400); Red Cell Distribution Width 18.6 % (12.1-15.1); White Blood Count 5.2 10^3/uL (4.0-10.0)
--- NOTE | 2021-08-30 12:07 | CTR_ITS ---
PROCEDURE INFORMATION: Exam: CT Head Without Contrast Exam date and time: 08/30/2021 1:28 PM Age: 86 years old Clinical indication: Altered mental status/memory loss; Confusion or disorientation; Patient HX: AMS TECHNIQUE: Imaging protocol: Computed tomography of the head without contrast. Radiation optimization: All CT scans at this facility use at least one of these dose optimization techniques: automated exposure control; mA and/or kV adjustment per patient size (includes targeted exams where dose is matched to clinical indication); or iterative reconstruction. COMPARISON: CT head wo con* [id number] 08/22/2021 6:38 PM RADIATION DOSE METRICS: Total DLP (mGy-cm): 756.33 FINDINGS: Brain: There is mild generalized brain volume loss/atrophy and microvascular change. There is no acute intracranial hemorrhage. No extra-axial fluid collection. No evidence of acute infarct. Brown white differentiation is intact. There is no evidence of mass. There is no mass effect or midline shift. Cerebral ventricles: No ventriculomegaly. Paranasal sinuses: Fluid is again seen in left sphenoid sinus. Mastoid air cells: No significant mastoid effusion. Orbital cavities: There have been bilateral intraocular lens replacements likely related to cataract surgery. Bones/joints: No acute fracture. Soft tissues: Unremarkable as visualized. CT/CT head wo con* [id number] IMPRESSION: No evidence of acute intracranial abnormality. No acute hemorrhage. No evidence of acute infarct or mass.
--- NOTE | 2021-08-30 12:07 | CTR_ITS ---
PROCEDURE INFORMATION: Exam: CT Abdomen And Pelvis With Contrast Exam date and time: 08/30/2021 1:31 PM Age: 86 years old Clinical indication: Abdominal pain; Flank; Left; TECHNIQUE: Imaging protocol: Computed tomography of the abdomen and pelvis with contrast. Radiation optimization: All CT scans at this facility use at least one of these dose optimization techniques: automated exposure control; mA and/or kV adjustment per patient size (includes targeted exams where dose is matched to clinical indication); or iterative reconstruction. Contrast material: VISI 320; Contrast volume: 95 ml; Contrast route: INTRAVENOUS (IV); COMPARISON: CT abdomen pelvis w con* [id number] 02/18/2018 11:44 AM RADIATION DOSE METRICS: Total DLP (mGy-cm): 783.42 FINDINGS: Pleural spaces: Left pleural effusion with adjacent compressive atelectasis and or pneumonia. Liver: Normal. No mass. Gallbladder and bile ducts: The gallbladder has been removed. Prominence of the intrahepatic and extrahepatic biliary ducts. This can be seen after cholecystectomy. No radiopaque retained stones are seen. Pancreas: Normal. No ductal dilation. Spleen: Normal. No splenomegaly. Adrenal glands: Normal. No mass. Kidneys and ureters: Normal. No hydronephrosis. Stomach and bowel: There are air-fluid levels in the distal colon suggesting mild nonspecific colitis versus other diarrheal illness. There is a moderate to large stool burden with gaseous distension of the large bowel.There is diverticulosis of the colon without evidence of diverticulitis. Appendix: No evidence of appendicitis. Intraperitoneal space: Unremarkable. No free air. No significant fluid collection. Vasculature: Multi-vessel atherosclerotic disease. Lymph nodes: Unremarkable. No enlarged lymph nodes. Urinary bladder: Unremarkable as visualized. Reproductive: Unremarkable as visualized. Bones/joints: Unremarkable. No acute fracture. Soft tissues: Unremarkable. CT/CT abdomen pelvis w con* [id number] IMPRESSION: 1. There are air-fluid levels in the distal colon suggesting mild nonspecific colitis versus other diarrheal illness. There is a moderate to large stool burden with gaseous distension of the large bowel. 2. Left pleural effusion with adjacent compressive atelectasis and or pneumonia.
[2021-08-30 12:18] VITALS: BP 147/70; PULSE 64; RESP 14; O2SAT 99
[2021-08-30 12:18] LABS: Alanine Aminotransferase 8 U/L (0-33); Albumin Level 3.5 g/dL (3.5-5.2); Alkaline Phosphatase 96 IU/L (35-105); Anion Gap 15.4 (5-19); Aspartate Amino Transferase 14 U/L (0-32); Blood Urea Nitrogen 20 mg/dL (8-23); Carbon Dioxide 16 mmol/L (22-29); Chloride 108 mmol/L (98-107); Globulin 2.8 g/dL (1.3-4.6); Glucose 99 mg/dL (65-115); Osmolality Calculated 285 mOsm/kg (285-295); Potassium 3.4 mmol/L (3.5-5.1); Sodium 136 mmol/L (136-145); Total Bilirubin 0.2 mg/dL (0.15-1.2); Total Protein 6.3 g/dL (6.6-8.7)
[2021-08-30] MEDS: iodixanol 320 mg/mL 100mL Btl IV (13:31)
[2021-08-30 14:13] VITALS: BP 147/70
[2021-08-30 15:27] LABS: Lactic Sepsis W/Reflex 0.4 mmol/L (0.5-2.2)
[2021-08-30] MEDS: ciprofloxacin 500 mg Tablet PO (15:53)
[2021-08-30] MEDS: metroNIDAZOLE 500 MG Tablet PO (15:53)
[2021-08-30 16:13] VITALS: BP 168/71; PULSE 73; RESP 16; O2SAT 98
== END 2021-08-30 16:16 | disposition home or self-care (01) ==
PROVIDERS: Nurse Practitioner Family; Emergency Provider Emergency Medicine; PCP Nurse Practitioner
DX: K52.9 Noninfective gastroenteritis and colitis, unspecified (principal); Z87.440 Personal history of urinary (tract) infections; J90 Pleural effusion, not elsewhere classified; R41.0 Disorientation, unspecified
CPT/HCPCS: 70450; 74177; 80053; 81001; 83605; 85025; 99283; Q9967

== ENCOUNTER → 2021-09-18 12:04 | Outpatient (BNVA) | payer OTHER, MEDICARE, SELFPAY | PROVIDERS: PCP Nurse Practitioner; Referring Provider Nurse Practitioner Family; Visit Provider Nurse Practitioner | DX: F03.90 Unspecified dementia, unspecified severity, without behavioral disturbance, psychotic disturbance, mood disturbance, and anxiety (principal); G81.91 Hemiplegia, unspecified affecting right dominant side | CPT/HCPCS: 99204 ==

== ENCOUNTER 2021-10-30 08:49 | Outpatient (CLI) | payer OTHER, SELFPAY ==
--- NOTE | 2021-10-30 09:30 | MR_ITS ---
WS: [id number] MRI HEAD WITHOUT CONTRAST TECHNIQUE: Sagittal T1, T2 axial, T2 axial FLAIR, axial and coronal T1 images, axial susceptibility w eighted imaging, axial diffusion weighted images, and coronal T2 images were obtained. CLINICAL INFORMATION: R41.3 - Other amnesia COMPARISON: None. FINDINGS: No evidence of restricted diffusion to suggest acute ischemia. Ventricular system and basal cisterns are patent. Moderate small vessel changes with moderate parenchymal volume loss. Small vessel changes in the bob. 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 Normal vascular flow voids at the sku ll base. No extra axial fluid collections. Fluid in the LEFT sphenoid sinus. Paranasal sinuses are otherwise well aerated. Mastoid air cells are well aerated. Normal posterior nasopharynx. Normal parapharyngeal fat. No hemosiderin on the susceptibility weighte d images. Normal optic chiasm and pituitary infundibulum. Moderate symmetric atrophy temporal lobes a nd hippocampal formations. MR/MR head wo con* [id number] IMPRESSION: 1. No evidence of restricted diffusion to suggest acute ischemia. 2. Moderate small vessel changes with moderate parenchymal volume loss. 3. Moderate symmetric atrophy temporal lobes and hippocampal formations. 4. 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 5. No hemosiderin on suddenly weighted images. 6. LEFT sphenoid sinusitis. 7. No other significant findings.
--- NOTE | 2021-10-30 11:00 | MR_ITS ---
WS: [id number] MRI CERVICAL SPINE NONCONTRAST TECHNIQUE: Sagittal T1, T2 and STIR imaging. Axial T2, gradient, and fiesta imaging. CLINICAL INFORMATION: M54.10 - Radiculopathy, site unspecified COMPARISON: None. FINDINGS: Straightening of the normal cervical lordosis. Mild spondylitic changes. Cord signal is normal. Mild disc bulging mid cervical spine. C2-C3: Normal. C3-C4: Normal. C4-C5: Mild disc osteophytic ridging. Mild facet arthropathy. Moderate LEFT and no significant RIGHT foraminal narrowing. Mild facet arthropathy. Mild central canal stenosis. C5-C6: Disc osteophyte complex with endplate ridging. Mild central canal stenosis. Moderate LEFT and no significant RIGHT foraminal narrowing. Mild facet arthropathy. C6-C7: Disc osteophyte complex endplate ridging. Mild central canal stenosis. Mild LEFT greater than RIGHT bony foraminal narrowing. Mild to moderate facet arthropathy. C7-T1: Disc osteophytic ridging. Small RIGHT pericentral protrusion with slight contact of the ventra l cervical cord. Mild central canal stenosis. Mild RIGHT foraminal narrowing. Visualized brain stem structures: Normal. Prevertebral soft tissues: Normal. MR/MR cervical spin wo con* [id number] IMPRESSION: 1. Straightening of the normal cervical lordosis. Cord signal is normal. 2. Mild central canal stenosis C4-C6 due to disc osteophyte complexes with dis c osteophytic ridging. 3. Small RIGHT pericentral protrusion C7-T1 with slight contact of the cervica l cord and mild central canal stenosis. Mild RIGHT C7-T1 bony foraminal narrowi ng. 4. Moderate bony foraminal narrowing LEFT C4-C5 and LEFT C5-C6 5. Moderate facet arthropathy C4-C5 C5-C6 and C6-C7.
== END 2021-10-30 08:50 | disposition home or self-care (01) ==
LOC: RAD 08:50
PROVIDERS: PCP Nurse Practitioner; Visit Provider Nurse Practitioner
DX: M54.10 Radiculopathy, site unspecified (principal); R29.90 Unspecified symptoms and signs involving the nervous system; R41.3 Other amnesia
CPT/HCPCS: 70551; 72141

== ENCOUNTER 2021-11-14 16:01 | Outpatient (CLI) | payer OTHER, SELFPAY ==
[2021-11-14 16:14] LABS: Bilirubin Urine Neg (Negative); Blood Urine Neg (Negative); Glucose Urine UA Norm (Normal); Ketones Urine Negative (Negative); Nitrate Urine Negative (Negative); Protein Urine Neg (Negative); Specific Gravity, Urine 1.015 (1.005-1.030); Urine Appearance Clear (CLEAR); Urine Color Yellow (Yellow); pH Urine 5 (5-7)
[2021-11-14 16:15] LABS: Add Urine Microscopic? YES; Leukocyte Esterase Urine 1+ (Negative); Urobilinogen Urine Norm (Negative)
[2021-11-14 16:20] LABS: Add Urine Culture? No; Calcium Oxalate Crystals Urine 2 /hpf; Squamous Epithelial Cell Urine 0-4 /hpf (0-5); WBC Urine 0-4 /hpf (0-5)
== END 2021-11-14 16:02 | disposition home or self-care (01) ==
PROVIDERS: PCP Nurse Practitioner; Visit Provider Nurse Practitioner Family
DX: Z87.440 Personal history of urinary (tract) infections (principal)
CPT/HCPCS: 81001

== ENCOUNTER 2022-11-28 11:58 | Emergency (ER) | payer OTHER, SELFPAY ==
[2022-11-28 11:58] VITALS: BP 197/91; PULSE 81; RESP 20; TEMP 36.7; O2SAT 95; BMI 24.0
[2022-11-28 12:03] VITALS: BP 175/85; PULSE 74; O2SAT 96
--- NOTE | 2022-11-28 12:05 | ECG_ITS ---
[facility] Test Date: 2022-11-28 Pat Name: Adriana Blakely Department: Room: Gender: Female Adult Neuropsychologist: : 1935 Requested By: Ridge Mckinney Order Number: [id number] Cleve MD: Jayjay Abreu M.D. Measurements Intervals [place] Rate: 71 P: 57 [place]: 150 QRS: 34 QRSD: 121 T: 34 QT: 403 QTc: 438 Interpretive Statements SINUS RHYTHM POSSIBLE LEFT ATRIAL ENLARGEMENT [-0.1mV P-WAVE IN V1/V2] RIGHT BUNDLE BRANCH BLOCK [120+ ms QRS DURATION, UPRIGHT V1, 40+ ms S IN I/aVL/V4/V5/V6] Compared to ECG 08/22/2021 20:26:05 Right bundle-branch block now present Intraventricular conduction delay no longer present Electronically Signed On 11-30-2022 8:34:21 CDT by Jayjay Abreu M.D. [id number]
--- NOTE | 2022-11-28 12:05 | XRR_ITS ---
PROCEDURE INFORMATION: Exam: XR Chest Exam date and time: 11/28/2022 12:10 PM Age: 87 years old Clinical indication: Cough and dyspnea; Additional info: Dyspnea/cough TECHNIQUE: Imaging protocol: Radiologic exam of the chest. Views: 1 view. COMPARISON: CR XR chest 1V portable [id number] 08/22/2021 6:43 PM FINDINGS: Lungs: Unremarkable. No consolidation. Pleural spaces: Unremarkable. No pleural effusion. No pneumothorax. Heart/Mediastinum: Unremarkable. No cardiomegaly. Vasculature: Aortic arch atherosclerotic calcification. Bones/joints: Unremarkable. Intraperitoneal space: Right upper abdomen surgical clips. XR/XR chest 1V portable [id number] IMPRESSION: No acute findings.
--- NOTE | 2022-11-28 12:05 | W.ED.WEAKNES ---
HPI - Weakness General: Chief complaint: Weakness Stated complaint: syncope/ weakness Time Seen by Provider: 11/28/22 11:59 Source: patient Mode of arrival: EMS History of Present Illness: 87-year-old female presents emergency room via EMS after having 2 syncopal episodes at home witnessed by home health nurse. 10 days ago she was found to have a bladder infection was just started on antibiotics via the [facility]. She denies any fever or flank pain denies any hematuria she does have a history of some mild dementia she is able to answer questions but not able to give much in the way of specifics. MD Complaint: generalized weakness Onset (ago): day(s) Duration: constant Location: generalized Severity: mild Relieving factors: none Exacerbating factors: none Associated symptoms: Reports confusion, decreased appetite and nausea; Denies chest pain, chills, melena, diaphoresis, dysuria, easy bruising, fever(s), headache(s), myalgias, rash, short of breath, syncope or vomiting Review of Systems Const: Reports: fatigue and malaise; Denies: fever(s), chills or diaphoresis Card: Denies: chest pain, palpitations, irregular heart rhythm or syncope GI: Reports: nausea; Denies: abdominal pain, vomiting or melena : Denies: flank pain, difficulty voiding, dysuria, urinary frequency or urinary urgency Musc: Denies: neck pain or back pain Neuro: Reports: confusion; Denies: headache(s) [place]/Lymph: Denies: easy bruising PFSH ED PFSH: Medical History Essential (primary) hypertension Gastro-esophageal reflux disease with esophagitis History of shingles History of skin cancer Hypothyroid Lymphedema of extremity 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 Occlusion and stenosis of left carotid artery Personal history of transient ischemic attack (TIA), and cerebral infarction without residual deficits Radiculopathy Stroke-like symptoms Unspecified osteoarthritis, unspecified site Unspecified urinary incontinence Unspecified visual loss Urinary hesitancy Surgical History History of gynecologic surgery vulvaectomy 08/2010 due to cancer Family History Other Asthma CAD (coronary artery disease) Cancer Diabetes Social History Smoking and tobacco status: never smoked Second hand smoke exposure: No Smoking risk assessment/counseling performed?: No Alcohol intake: never Desire information about alcohol rehabilitation?: No Counseling given: No Substance/Drug Use: never Desire information about substance/drug rehabilitation?: No Counseling given: No Adopted: No Caregiver/support person: No Lives independently: Yes Household members: none Housing: House Marital status: / service: No Current occupational status: retired Do you think of yourself as: Straight/Heterosexual Current gender identity: Female Physical Exam Const: GENERAL APPEARANCE: cooperative and comfortable ORIENTATION/CONSCIOUSNESS: Yes awake HENMT: COMMON NORMALS: normocephalic, atraumatic and hearing grossly normal bilaterally HEAD & SCALP: normocephalic and atraumatic Resp: COMMON NORMALS: normal respiratory effort, No retractions, No use of accessory muscles and clear to auscultation bilaterally AUSCULTATION: clear to auscultation bilaterally Cardio: COMMON NORMALS: regular rate, regular rhythm and No murmurs present (Cardio) RATE: regular rate RHYTHM: regular rhythm GI: COMMON NORMALS: Soft to palpation and No hepatosplenomegaly present AUSCULTATION: Yes normoactive bowel sounds PALPATION: Yes Soft to palpation, No Tenderness to palpation present (GI), No Guarding due to palpation present (GI) and Yes No hepatosplenomegaly present Extremity: COMMON NORMALS: normal to inspection, capillary refill normal, no clubbing, cyanosis or edema, no calf tenderness and no pedal edema Neuro: OTHER: No focal neurologic deficits noted abbreviated stroke scale is unremarkable Skin: COMMON NORMALS: no rashes or lesions noted GENERAL SKIN EXAM: no rashes or lesions noted Course Vital Signs: Vital signs: Vital Signs Temperature 98.1 F 11/28/22 11:58 Pulse Rate 72 11/28/22 15:00 Respiratory Rate 20 H 11/28/22 11:58 Blood Pressure 155/88 11/28/22 15:00 Pulse Oximetry 97 11/28/22 15:00 Oxygen Delivery Me thod Room Air 11/28/22 14:03 MDM - Weakness Medical Decision Making Patient has had a couple of ankle syncopal episodes of the last few days. She had no arrhythmias here EKG shows right bundle branch block with no acute ST changes. The remainder of her labs are unremarkable other than some mild anemia which appears to be chronic microcytic anemia likely iron deficiency. Orthostatics were negative. She does have some mild hypertension. It is improved from when she first arrived. I recommended that we place her on observation for further evaluation including carotid echocardiogram and monitoring of her heart rhythm she declines. Talked with her with the family at the bedside despite both the family and my's efforts to convince her to stay she would prefer to go home. She is encouraged to return if she has any further symptoms or changes her mind and wishes further evaluation. Otherwise recommend that she have outpatient testing which we will arrange for through case management. Medical Records I reviewed the patient's medical records. Lab Data I reviewed the patient's lab results. 11/28/22 12:00 11/28/22 12:00 Radiology Impressions Chest X-Ray 11/28/22 12:05 IMPRESSION: No acute findings. Head CT 11/28/22 13:08 IMPRESSION: 1. No acute intracranial findings. 2. Overall mild paranasal sinus disease with greatest involvement of the left sphenoid sinus. Laboratory Results WBC 8.1 10^3/uL (4.0-10.0) 11/28/22 12:00 RBC 4.41 10^6/uL (4.1-5.3) 11/28/22 12:00 Hgb 10.7 g/dL (11.5-15.3) L 11/28/22 12:00 Hct 35.3 % (37.0-47.0) L 11/28/22 12:00 MCV 80.0 fl (81-99) L 11/28/22 12:00 MCH 24.3 pg (28.0-34.0) L 11/28/22 12:00 MCHC 30.3 g/dL (30.0-36.0) 11/28/22 12:00 RDW 19.7 % (12.1-15.1) H 11/28/22 12:00 Plt Count 277 10^3/cmm (130-400) 11/28/22 12:00 MPV 9.2 fL (7.4-10.4) 11/28/22 12:00 Neut % (Auto) 74.0 % 11/28/22 12:00 Lymph % (Auto) 20.2 % 11/28/22 12:00 [place] % (Auto) 5.3 % 11/28/22 12:00 Eos % (Auto) 0.1 % 11/28/22 12:00 Baso % (Auto) 0.2 % 11/28/22 12:00 Neut # (Auto) 5.94 10^3/uL (1.8-7.7) 11/28/22 12:00 Lymph # (Auto) 1.6 10^3/uL (0.8-4.8) 11/28/22 12:00 [place] # (Auto) 0.4 10^3/uL (0.2-0.9) 11/28/22 12:00 Eos # (Auto) 0.0 10^3/uL (0.0-0.8) 11/28/22 12:00 Baso # (Auto) 0.0 10^3/uL (0.0-0.1) 11/28/22 12:00 Nucleated RBC % (auto) 0 % 11/28/22 12:00 Nucleated RBCs # 0.0 /100WBC 11/28/22 12:00 Sodium 136 mmol/L (136-145) 11/28/22 12:00 Potassium 4.0 mmol/L (3.5-5.1) 11/28/22 12:00 Chloride 102 mmol/L (98-107) 11/28/22 12:00 Carbon Dioxide 22 mmol/L (22-29) 11/28/22 12:00 Anion Gap 16.0 (5-19) 11/28/22 12:00 BUN 15 mg/dL (8-23) 11/28/22 12:00 Creatinine 0.7 mg/dL (0.5-0.9) 11/28/22 12:00 GFR Calculation Not Reportable 11/28/22 12:00 Glucose 108 mg/dL (65-115) 11/28/22 12:00 Calculated Osmolality 283 mOsm/kg (285-295) L 11/28/22 12:00 Calcium 8.8 mg/dL (8.5-10.5) 11/28/22 12:00 Total Bilirubin 0.3 mg/dL (0.15-1.2) 11/28/22 12:00 AST 17 U/L (0-32) 11/28/22 12:00 ALT 16 U/L (0-33) 11/28/22 12:00 Alkaline Phosphatase 64 U/L (35-105) 11/28/22 12:00 Total Protein 6.2 g/dL (6.6-8.7) L 11/28/22 12:00 Albumin 3.7 g/dL (3.5-5.2) 11/28/22 12:00 Globulin 2.5 g/dL (1.3-4.6) 11/28/22 12:00 Urine Color Straw (Yellow) 11/28/22 12:40 Urine Appearance Clear (CLEAR) 11/28/22 12:40 Urine pH 5 (5-7) 11/28/22 12:40 Ur Specific [place] 1.015 (1.005-1.030) 11/28/22 12:40 Urine Protein Neg (Negative) 11/28/22 12:40 Urine Glucose (UA) Norm (Normal) 11/28/22 12:40 Urine Ketones Negative (Negative) 11/28/22 12:40 Urine Blood Neg (Negative) 11/28/22 12:40 Urine Nitrate Negative (Negative) 11/28/22 12:40 Urine Bilirubin Neg (Negative) 11/28/22 12:40 Urine Urobilinogen Norm mg/dL (Negative) 11/28/22 12:40 Ur Leukocyte Esterase Negative (Negative) 11/28/22 12:40 Discharge Plan Discharge Patient Disposition: Home Clinical Impression: Syncope Condition: Stable Prescriptions: No Action amphotericin B lipid complex 5 mg/mL suspension 5 mg IV DIRECTED acetaminophen [Pain Relief (acetaminophen)] 650 mg tablet extended release 650 mg PO Q12H Qty: 60 0RF lisinopril 2.5 mg tablet 2.5 mg PO DAILY Qty: 90 1RF famotidine 40 mg tablet 40 mg PO BID Qty: 60 2RF pregabalin [Lyrica] 50 mg capsule 50 mg PO BID Qty: 180 1RF Rx Instructions: for shingles pain sucralfate [Carafate] 1 gram tablet 1 g PO .4 times day Qty: 360 1RF tamsulosin 0.4 mg capsule 0.4 mg PO .in AM Qty: 90 1RF cholecalciferol (vitamin D3) 125 mcg (5,000 unit) capsule 250 mcg PO DAILY thyroid (pork) [[place] Thyroid] 60 mg tablet 60 mg PO DAILY Qty: 90 1RF Rx Instructions: dose increase potassium chloride 8 mEq tablet extended release 8 meq PO DAILY Qty: 90 0RF donepezil 10 mg tablet 10 mg PO ONCE 90 Days Qty: 90 5RF Rx Instructions: for memory mirtazapine 15 mg tablet 15 mg PO DAILY cefdinir 300 mg capsule 300 mg PO BID Qty: 14 0RF Cipro 500 mg tablet 500 mg PO BID Qty: 10 0RF Discharge Orders: Discharge ED (Routine); Ordered 11/28/22 Ordered By: Ridge Amaya Referrals: Tika Faustin FNP [Referring] - Discharge Diet: Usual diet Discharge Activity: Limit activity as instructed Patient Instructions: Opioid Safety, Pain Management Activity Restrictions/Additional Instructions: You were seen today for episodes of syncope (passing out). No significant findings were noted on your work-up here. We did recommend admission for further testing. You declined to be admitted and will be discharged. If you change your mind or further symptoms you are welcome to return to be reevaluated. Coding Level of Care Code ED [employer] Analyst for Ava Fernando
[2022-11-28 12:15] LABS: Basophils % 0.2 %; Eosinophils % 0.1 %; Hematocrit 35.3 % (37.0-47.0); Hemoglobin 10.7 g/dL (11.5-15.3); Lymphocytes # 1.6 10^3/uL (0.8-4.8); Lymphocytes % 20.2 %; Mean Corpuscular HGB Conc 30.3 g/dL (30.0-36.0); Mean Corpuscular Hemoglobin 24.3 pg (28.0-34.0); Mean Platelet Volume 9.2 fL (7.4-10.4); Monocytes # 0.4 10^3/uL (0.2-0.9); Monocytes % 5.3 %; Neutrophils # 5.94 10^3/uL (1.8-7.7); Nucleated Red Blood Cells % 0 %; Platelet Count 277 10^3/cmm (130-400); Red Blood Count 4.41 10^6/uL (4.1-5.3); Red Cell Distribution Width 19.7 % (12.1-15.1); White Blood Count 8.1 10^3/uL (4.0-10.0)
[2022-11-28 12:42] LABS: Alanine Aminotransferase 16 U/L (0-33); Albumin Level 3.7 g/dL (3.5-5.2); Alkaline Phosphatase 64 U/L (35-105); Aspartate Amino Transferase 17 U/L (0-32); Blood Urea Nitrogen 15 mg/dL (8-23); Calcium 8.8 mg/dL (8.5-10.5); Carbon Dioxide 22 mmol/L (22-29); Chloride 102 mmol/L (98-107); Creatinine Clr Calc Pharmacy 45.5359; Globulin 2.5 g/dL (1.3-4.6); Glucose 108 mg/dL (65-115); Osmolality Calculated 283 mOsm/kg (285-295); Sodium 136 mmol/L (136-145); Total Bilirubin 0.3 mg/dL (0.15-1.2); Total Protein 6.2 g/dL (6.6-8.7)
--- NOTE | 2022-11-28 12:49 | PC.PHAR ---
PT STATES [facility] ALL [facility]S AND SHE HAS NO IDEA WHAT THEY ARE. [facility]NA[facility]IL[facility] ON WEEKENDS. UNABLE TO VERIFY.
[2022-11-28 12:50] LABS: Add Urine Microscopic? NO; Charge for UA Resulting for Rev
[2022-11-28 12:57] LABS: Bilirubin Urine Neg (Negative); Blood Urine Neg (Negative); Glucose Urine UA Norm (Normal); Ketones Urine Negative (Negative); Leukocyte Esterase Urine Negative (Negative); Nitrate Urine Negative (Negative); Protein Urine Neg (Negative); Specific Gravity, Urine 1.015 (1.005-1.030); Urine Appearance Clear (CLEAR); Urine Color Straw (Yellow); Urobilinogen Urine Norm (Negative); pH Urine 5 (5-7)
--- NOTE | 2022-11-28 13:08 | CTR_ITS ---
PROCEDURE INFORMATION: Exam: CT Head Without Contrast Exam date and time: 11/28/2022 2:02 PM Age: 87 years old Clinical indication: Syncope and collapse; Additional info: Syncope weakness TECHNIQUE: Imaging protocol: Computed tomography of the head without contrast. Radiation optimization: All CT scans at this facility use at least one of these dose optimization techniques: automated exposure control; mA and/or kV adjustment per patient size (includes targeted exams where dose is matched to clinical indication); or iterative reconstruction. REPORTING DATA: Count of CT and Cardiac NM exams in prior 12 months: This patient has received 0 known CTs and 0 known cardiac nuclear medicine studies in the 12 months prior to the current study. COMPARISON: 1. MR head wo con* [id number] 10/30/2021 10:[address] head wo con* [id number] 08/30/2021 1:[address] head wo con* [id number] 08/22/2021 6:38 PM RADIATION DOSE METRICS: Total DLP (mGy-cm): 996.38 FINDINGS: Brain: Diffuse cerebral atrophy, consistent with patient's age. No hemorrhage. Preserved her-white matter differentiation. Patchy cerebral white matter hypoattenuation in keeping with chronic microvascular ischemic change. No mass effect. Cerebral ventricles: Ventricles are in proportion to the degree of atrophy. Paranasal sinuses: Opacification of a right posterior ethmoid air cell. Moderate opacification of the left sphenoid sinus with mild frothy secretions. Minimal mucous retention cyst of the right sphenoid sinus. Mastoid air cells: Visualized mastoid air cells are well aerated. Bones/joints: No acute fracture. Bilateral TMJ degenerative changes. Soft tissues: Unremarkable. CT/CT head wo con* [id number] IMPRESSION: 1. No acute intracranial findings. 2. Overall mild paranasal sinus disease with greatest involvement of the left sphenoid sinus.
[2022-11-28 14:03] VITALS: BP 158/84; PULSE 76; O2SAT 100
[2022-11-28 14:59] VITALS: BP 173/81; BP 181/95; BP 189/87; PULSE 80; PULSE 85; PULSE 96
[2022-11-28 15:00] VITALS: BP 155/88; PULSE 72; O2SAT 97
[2022-11-28 15:43] VITALS: BP 158/76; PULSE 76; O2SAT 98
[2022-11-28 15:50] LABS: Troponin(5th) Baseline 19 ng/L (0-10)
--- NOTE | 2022-11-30 11:26 | DCPLANNER ---
Addendum entered by Darcie Nguyen 11/30/22 11:31: Patient has [facility], unable to [facility]. solar sales manager spoke with ordering physician, was told to refer patient back to primary care physician. Original Note: solar sales manager had message to schedule an outpatient carotid, and echo cardiogram for patient. solar sales manager faxed signed order to centralized scheduling, who will call patient with appointment information.
== END 2022-11-28 15:45 | disposition home or self-care (01) ==
PROVIDERS: Emergency Provider Family Medicine; PCP Nurse Practitioner Family
DX: R55 Syncope and collapse (principal); I10 Essential (primary) hypertension; Z85.44 Personal history of malignant neoplasm of other female genital organs
CPT/HCPCS: 51701; 70450; 71045; 80053; 81003; 84484; 85025; 93005; 99285

== ENCOUNTER → 2022-12-15 12:36 | Outpatient (BNVA) | payer OTHER, SELFPAY | PROVIDERS: PCP Nurse Practitioner Family; Visit Provider Specialist | DX: R56.9 Unspecified convulsions; G31.84 Mild cognitive impairment of uncertain or unknown etiology; F32.A Depression, unspecified; F41.9 Anxiety disorder, unspecified; G51.31 Clonic hemifacial spasm, right | CPT/HCPCS: 95816; 96116; 99215 ==

== ENCOUNTER → 2022-12-17 10:42 | Outpatient (BNVA) | payer OTHER, SELFPAY | PROVIDERS: PCP Nurse Practitioner Family; Visit Provider Nurse Practitioner Family | DX: L57.0 Actinic keratosis (principal); L81.4 Other melanin hyperpigmentation; L57.8 Other skin changes due to chronic exposure to nonionizing radiation; Z85.828 Personal history of other malignant neoplasm of skin; D18.01 Hemangioma of skin and subcutaneous tissue; L82.1 Other seborrheic keratosis; L21.8 Other seborrheic dermatitis | CPT/HCPCS: 17004; 99214 ==

== ENCOUNTER → 2022-12-22 15:00 | Outpatient (BNVA) | payer OTHER, SELFPAY | PROVIDERS: PCP Nurse Practitioner Family; Referring Provider Specialist; Visit Provider Specialist | DX: R56.9 Unspecified convulsions (principal); G31.84 Mild cognitive impairment of uncertain or unknown etiology | CPT/HCPCS: 95812; 95816 ==

== ENCOUNTER → 2023-02-23 10:54 | Outpatient (BNVA) | payer OTHER, SELFPAY | PROVIDERS: PCP Nurse Practitioner Family; Referring Provider Specialist; Visit Provider Internal Medicine | DX: E03.9 Hypothyroidism, unspecified (principal); Z79.890 Hormone replacement therapy; G31.84 Mild cognitive impairment of uncertain or unknown etiology; R56.9 Unspecified convulsions; R41.3 Other amnesia | CPT/HCPCS: 36415; 84439; 84443; 84480; 99204; 99214 ==

== ENCOUNTER → 2023-03-18 10:30 | Outpatient (BNVA) | payer OTHER, SELFPAY | PROVIDERS: PCP Nurse Practitioner Family; Visit Provider Dermatology | DX: L57.0 Actinic keratosis (principal); L81.4 Other melanin hyperpigmentation; L57.8 Other skin changes due to chronic exposure to nonionizing radiation; Z85.828 Personal history of other malignant neoplasm of skin | CPT/HCPCS: 17000; 99213 ==

== ENCOUNTER → 2023-05-06 10:02 | Outpatient (BNVA) | payer OTHER, SELFPAY | PROVIDERS: PCP Nurse Practitioner Family; Visit Provider Internal Medicine | DX: E03.9 Hypothyroidism, unspecified (principal); R41.3 Other amnesia; K21.9 Gastro-esophageal reflux disease without esophagitis; Z79.890 Hormone replacement therapy | CPT/HCPCS: 99214 ==

== ENCOUNTER 2023-05-14 11:10 | Outpatient (CLI) | payer OTHER, SELFPAY ==
[2023-05-14 11:57] LABS: Free T4 Free Thyroxine 1.54 ng/dL (0.82-1.77); Thyroid Stimulating Hormone 0.06 uIU/mL (0.27-4.20)
== END 2023-05-14 11:11 | disposition home or self-care (01) ==
LOC: LAB 11:16
PROVIDERS: PCP Nurse Practitioner Family; Visit Provider Internal Medicine
DX: E03.9 Hypothyroidism, unspecified (principal)
CPT/HCPCS: 36415; 84439; 84443

== ENCOUNTER 2023-06-28 11:33 | Outpatient (CLI) | payer OTHER, SELFPAY ==
[2023-06-28 13:07] LABS: Free T4 Free Thyroxine 0.88 ng/dL (0.82-1.77); Thyroid Stimulating Hormone 1.38 uIU/mL (0.27-4.20)
== END 2023-06-28 11:34 | disposition home or self-care (01) ==
LOC: LAB 11:34
PROVIDERS: Visit Provider Internal Medicine
DX: E03.9 Hypothyroidism, unspecified (principal)
CPT/HCPCS: 36415; 84439; 84443

== ENCOUNTER → 2023-07-05 11:17 | Outpatient (BNVA) | payer OTHER, SELFPAY | PROVIDERS: Visit Provider Internal Medicine | DX: E03.9 Hypothyroidism, unspecified (principal); R41.3 Other amnesia; K21.9 Gastro-esophageal reflux disease without esophagitis; R19.7 Diarrhea, unspecified; Z79.890 Hormone replacement therapy | CPT/HCPCS: 99213; 99214 ==

== ENCOUNTER 2023-07-09 11:06 | Outpatient (RCR) | payer OTHER, SELFPAY | END 2023-08-01 23:59 | disposition home or self-care (01) | LOC: SPT 11:06 | PROVIDERS: PCP Nurse Practitioner Family; Visit Provider Nurse Practitioner Family | DX: I89.0 Lymphedema, not elsewhere classified (principal) | CPT/HCPCS: 97161 ==

== ENCOUNTER → 2023-09-16 14:50 | Outpatient (BNVA) | payer OTHER, SELFPAY | PROVIDERS: PCP Nurse Practitioner Family; Visit Provider Dermatology | DX: L57.8 Other skin changes due to chronic exposure to nonionizing radiation (principal); I87.2 Venous insufficiency (chronic) (peripheral); L57.0 Actinic keratosis; R60.0 Localized edema; L82.0 Inflamed seborrheic keratosis; Z85.828 Personal history of other malignant neoplasm of skin | CPT/HCPCS: 17000; 17110; 99213 ==

== ENCOUNTER 2023-11-18 16:15 | Outpatient (CLI) | payer OTHER, SELFPAY ==
[2023-11-18 17:07] LABS: Add Urine Microscopic? NO; Charge for UA Resulting for Rev
[2023-11-18 17:16] LABS: Bilirubin Urine Neg (Negative); Blood Urine Neg (Negative); Glucose Urine UA Norm (Normal); Ketones Urine Negative (Negative); Leukocyte Esterase Urine Negative (Negative); Nitrate Urine Negative (Negative); Protein Urine Neg (Negative); Specific Gravity, Urine 1.015 (1.005-1.030); Urine Appearance Clear (CLEAR); Urine Color Yellow (Yellow); Urobilinogen Urine Norm (Negative); pH Urine 5 (5-7)
== END 2023-11-18 16:16 | disposition home or self-care (01) ==
PROVIDERS: PCP Nurse Practitioner Family; Visit Provider Nurse Practitioner Family
DX: Z87.440 Personal history of urinary (tract) infections (principal)
CPT/HCPCS: 81003

== ENCOUNTER 2023-12-22 10:03 | Outpatient (CLI) | payer OTHER, SELFPAY ==
--- NOTE | 2023-12-22 10:06 | MR_ITS ---
WS: [id number] MRI HEAD WITHOUT CONTRAST TECHNIQUE: Sagittal T1, T2 axial, T2 axial FLAIR, axial and coronal T1 images, axial susceptibility w eighted imaging, axial diffusion weighted images, and coronal T2 images were obtained. CLINICAL INFORMATION: NEW ONSET HEADACHE COMPARISON: CT 11/28/2022 FINDINGS: No evidence of restricted diffusion to suggest acute ischemia. Ventricular system and basilar cistern s are patent. Moderate small vessel changes. Moderate parenchymal volume loss. A few chronic lacunar infarcts in the RIGHT cerebellum. Normal vascular flow voids at the skull base. No extra-axial fluid collections. Mucosal thickening in the ethmoid air cells and sphenoid sinus. Mastoid air cells are well aerated. No hemosiderin on the susceptibility weighted images. Normal opt ic chiasm and pituitary infundibulum. Mild symmetric atrophy temporal lobes and hippocampal formation s. MR/MR head wo con* [id number] IMPRESSION: 1. No evidence of restricted diffusion to suggest acute ischemia. 2. Moderate small vessel changes with moderate parenchymal volume loss. 3. A few chronic lacunar infarcts in the RIGHT cerebellum. 4. No hemosiderin on the susceptibly weighted images.
== END 2023-12-22 10:04 | disposition home or self-care (01) ==
LOC: RAD 10:04
PROVIDERS: PCP Nurse Practitioner Family; Visit Provider Nurse Practitioner Family
DX: I67.9 Cerebrovascular disease, unspecified (principal); G31.9 Degenerative disease of nervous system, unspecified; I63.81 Other cerebral infarction due to occlusion or stenosis of small artery; J32.2 Chronic ethmoidal sinusitis; J32.3 Chronic sphenoidal sinusitis; R51.9 Headache, unspecified
CPT/HCPCS: 70551

== ENCOUNTER → 2024-01-05 11:45 | Outpatient (BNVA) | payer OTHER, SELFPAY | PROVIDERS: PCP Nurse Practitioner Family; Visit Provider Internal Medicine | DX: E03.9 Hypothyroidism, unspecified (principal); R41.3 Other amnesia; K21.9 Gastro-esophageal reflux disease without esophagitis; R19.7 Diarrhea, unspecified; Z79.890 Hormone replacement therapy | CPT/HCPCS: 36415; 84439; 84443; 99214 ==

== ENCOUNTER 2024-01-18 15:40 | Outpatient (CLI) | payer OTHER, SELFPAY ==
[2024-01-18 16:49] LABS: Bacteria Urine TRACE /hpf; Bilirubin Urine Neg (Negative); Blood Urine Neg (Negative); Glucose Urine UA Norm (Normal); Ketones Urine Negative (Negative); Leukocyte Esterase Urine Negative (Negative); Mucus Urine TRACE /hpf; Nitrate Urine Negative (Negative); Protein Urine Trace (Negative); RBC Urine 0-4 /hpf (0-2); Squamous Epithelial Cell Urine 0-4 /hpf (0-5); Urine Appearance Clear (CLEAR); Urine Color Yellow (Yellow); Urobilinogen Urine Norm (Negative); WBC Urine 0-4 /hpf (0-5); pH Urine 5 (5-7)
== END 2024-01-18 15:41 | disposition home or self-care (01) ==
PROVIDERS: PCP Nurse Practitioner Family; Visit Provider Nurse Practitioner Family
DX: R41.0 Disorientation, unspecified (principal)
CPT/HCPCS: 81001

== ENCOUNTER → 2024-02-10 10:23 | Outpatient (BNVA) | payer OTHER, SELFPAY | PROVIDERS: PCP Nurse Practitioner Family; Visit Provider Specialist | DX: G30.9 Alzheimer's disease, unspecified (principal); F02.80 Dementia in other diseases classified elsewhere, unspecified severity, without behavioral disturbance, psychotic disturbance, mood disturbance, and anxiety; R41.3 Other amnesia; R56.9 Unspecified convulsions | CPT/HCPCS: 96116; 99214; 99215 ==

== ENCOUNTER → 2024-03-08 10:25 | Outpatient (BNVA) | payer OTHER, SELFPAY | PROVIDERS: PCP Nurse Practitioner Family; Visit Provider Podiatrist Foot & Ankle Surgery | DX: L60.0 Ingrowing nail (principal) | CPT/HCPCS: 99203 ==

== ENCOUNTER → 2024-03-16 09:39 | Outpatient (BNVA) | payer OTHER, SELFPAY | PROVIDERS: PCP Nurse Practitioner Family; Visit Provider Nurse Practitioner Family | DX: L57.0 Actinic keratosis (principal); L81.4 Other melanin hyperpigmentation; L57.8 Other skin changes due to chronic exposure to nonionizing radiation; Z85.828 Personal history of other malignant neoplasm of skin | CPT/HCPCS: 17000; 99213 ==

== ENCOUNTER → 2024-05-16 10:20 | Outpatient (BNVA) | payer OTHER, SELFPAY | PROVIDERS: PCP Nurse Practitioner Family; Visit Provider Specialist | DX: G30.9 Alzheimer's disease, unspecified (principal); F02.80 Dementia in other diseases classified elsewhere, unspecified severity, without behavioral disturbance, psychotic disturbance, mood disturbance, and anxiety; R41.3 Other amnesia; R56.9 Unspecified convulsions | CPT/HCPCS: 99213 ==

== ENCOUNTER 2024-06-15 15:02 | Outpatient (CLI) | payer OTHER, SELFPAY ==
[2024-06-15 15:20] LABS: Bilirubin Urine Negative (Negative); Blood Urine Negative (Negative); Glucose Urine UA Negative (Normal); Ketones Urine Negative (Negative); Leukocyte Esterase Urine Trace (Negative); Nitrate Urine Positive (Negative); Protein Urine Negative (Negative); Specific Gravity, Urine 1.015 (1.005-1.030); Urine Appearance Clear (CLEAR); Urine Color Yellow (Yellow); Urobilinogen Urine 0.2 mg/dL (Negative); pH Urine 5.5 (5-7)
[2024-06-15 15:23] LABS: Add Urine Microscopic? YES; Bacteria Urine 4+ /hpf; Hyaline Casts Urine 0-4 /lpf; RBC Urine 0-2 /hpf (0-2); Squamous Epithelial Cell Urine 0-5 /hpf (0-5); WBC Urine 0-5 /hpf (0-5)
[2024-06-15 15:36] LABS: Add Urine Culture? No
== END 2024-06-15 15:03 | disposition home or self-care (01) ==
PROVIDERS: PCP Nurse Practitioner Family; Visit Provider Nurse Practitioner Family
DX: R82.90 Unspecified abnormal findings in urine (principal); R41.0 Disorientation, unspecified
CPT/HCPCS: 81001; 87086

== ENCOUNTER 2024-08-02 15:58 | Outpatient (CLI) | payer OTHER, MEDICARE, SELFPAY ==
[2024-08-02 16:33] LABS: Bacteria Urine Trace /hpf; Hyaline Casts Urine 2.87 /lpf; RBC Urine 0-2 /hpf (0-2); Squamous Epithelial Cell Urine 0-5 /hpf (0-5); WBC Urine 0-5 /hpf (0-5)
[2024-08-02 16:37] LABS: Add Urine Culture? No; Add Urine Microscopic? YES; Bilirubin Urine Neg (Negative); Blood Urine Neg (Negative); Glucose Urine UA Norm (Normal); Ketones Urine Negative (Negative); Leukocyte Esterase Urine 1+ (Negative); Nitrate Urine Negative (Negative); Protein Urine Neg (Negative); Urine Appearance Clear (CLEAR); Urine Color Yellow (Yellow); Urobilinogen Urine Norm (Negative); pH Urine 5 (5-7)
== END 2024-08-02 15:59 | disposition home or self-care (01) ==
PROVIDERS: PCP Nurse Practitioner Family; Visit Provider Nurse Practitioner Family
DX: N39.41 Urge incontinence (principal)
CPT/HCPCS: 81001; 87086

== ENCOUNTER → 2024-11-15 10:51 | Outpatient (BNVA) | payer OTHER, MEDICARE, SELFPAY | PROVIDERS: PCP Nurse Practitioner Family; Visit Provider Nurse Practitioner Family | DX: L81.4 Other melanin hyperpigmentation (principal); L57.8 Other skin changes due to chronic exposure to nonionizing radiation; Z08 Encounter for follow-up examination after completed treatment for malignant neoplasm; Z85.828 Personal history of other malignant neoplasm of skin; D48.5 Neoplasm of uncertain behavior of skin; L57.0 Actinic keratosis | CPT/HCPCS: 11102; 17000; 99213 ==